=== PATIENT | female | born 1950 | race Asian ===

== ENCOUNTER → 2021-04-08 13:56 | Outpatient (CLI) | payer MEDICARE, OTHER, SELFPAY ==
--- NOTE | 2021-04-08 14:00 | DI.CT.S_ITS ---
PROCEDURE: CT SINUS SCREEN WO CON INDICATIONS: chronic pansinusitis TECHNIQUE: Noncontrast 3.0 mm axial images acquired from the frontal sinuses to the mid-sella, with coronal and sagittal reformats. For radiation dose reduction, the following was used: automated exposure control, adjustment of mA and/or kV according to patient size. COMPARISON: None. FINDINGS: Image quality: Excellent. Maxillary Sinuses: No bony remodeling or destruction. Sinuses are clear. Ethmoid Air Cells: No bony remodeling or destruction. Sinuses are clear. Sphenoid Sinuses: No bony remodeling or destruction. Sinuses are clear. Frontal Sinuses: No bony remodeling or destruction. Sinuses are clear. Ostiomeatal Complexes: Ostiomeatal complexes are patent, yet there constitutionally narrowed, with bilateral Russ cells. Miscellaneous: Visualized intra-orbital contents are normal. There is a left-sided natalya bullosa. There is mild rightward nasal septal deviation. IMPRESSION: No significant active paranasal sinus disease can be seen. Constitutionally narrowed ostiomeatal complexes. Mild rightward nasal septal deviation, with a left-sided natalya bullosa. Dictated by: Chauncey Owens M.D. on 04/08/2021 at 13:25 Approved by: Chauncey Owens M.D. on 04/08/2021 at 13:26
== END ==
PROVIDERS: Referring Provider Otolaryngology; Visit Provider Otolaryngology
DX: J32.4 Chronic pansinusitis (principal); J34.2 Deviated nasal septum
CPT/HCPCS: 70486

== ENCOUNTER 2023-07-07 21:24 | Inpatient (IN) | payer MEDICARE, OTHER, SELFPAY ==
[2023-07-07] VITALS (9 sets, daily range): BP systolic 193–238; BP diastolic 90–114; PULSE 89–118; RESP 15–24; TEMP 36.9; O2SAT 96–99; BMI 25.8
--- NOTE | 2023-07-07 21:51 | DI.RAD.S_ITS ---
PROCEDURE: XR CHEST 1V INDICATIONS: chest pain TECHNIQUE: One view of the chest was acquired. COMPARISON: None. FINDINGS: Surgical changes and devices: None. Lungs and pleura: Lungs are clear. No pleural effusions or pneumothorax. Mediastinum: Mediastinal contours appear normal. Heart size is normal. Bones and chest wall: No suspicious bony lesions. Overlying soft tissues appear unremarkable. IMPRESSION: No acute cardiopulmonary abnormality. Dictated by: Donte Mireles M.D. on 07/07/2023 at 23:07 Approved by: Donte Mireles M.D. on 07/07/2023 at 23:07
[2023-07-07 22:37] LABS: Add Manual Diff / Slide Review NO; Basophils Absolute Auto 100 /uL (0-100); Basophils Percent Auto 1.1 % (0-2); Eosinophils Absolute Auto 100 /uL (0-450); Eosinophils Percent Auto 1.5 % (2-4); Hemoglobin 13.4 g/dL (12.0-16.0); Lymphocytes Absolute Auto 1300 /uL (1100-4500); Lymphocytes Percent Auto 15.5 % (25-40); Mean Corpuscular HGB Conc 33.5 % (30-36); Mean Corpuscular Hemoglobin 27.8 PG (26-34); Mean Corpuscular Volume 83.1 fL (80-100); Monocytes Absolute Auto 500 /uL (0-900); Monocytes Percent Auto 5.9 % (3-14); Neutrophils Absolute Auto 6200 /uL (1500-7000); Platelet Count 268 X10^3/uL (150-400); Red Blood Cell Count 4.82 X10^6/uL (4.0-5.2); Red Cell Distribution Width 13.4 % (11.6-14.8); White Blood Cell Count 8.1 X10^3/uL (4.5-11.0)
[2023-07-07 22:38] LABS: INR 0.9 (0.9-1.3); Prothrombin Time 9.9 SECONDS (10.1-12.7)
[2023-07-07 22:41] LABS: PTT Partial Thromboplastin Tim 32 SECONDS (26-36)
[2023-07-07 22:43] LABS: Alanine Aminotransferase 19 IU/L (<35); Albumin 4.6 g/dL (3.5-5.0); Albumin Globulin Ratio 1.1 (1.0-2.8); Alkaline Phosphatase 68 U/L (38-126); Aspartate Aminotransferase 34 IU/L (14-36); BUN Creatinine Ratio 15.9 (6-22); Bilirubin Total 0.4 mg/dL (0.2-1.3); Blood Urea Nitrogen 20 mg/dL (7-17); Calcium 10.3 mg/dL (8.4-10.2); Carbon Dioxide 25 mmol/L (22-32); Chloride 101 mmol/L (98-107); Creatine Kinase 210 U/L (30-135); Estimated Glomerular Filt Rate 45 mL/min (>60); Globulin 4.1 g/dL (1.7-4.1); Glucose 232 mg/dL (80-110); HEMOLYSIS 19 (0-50); Lipase 104 U/L (23-300); Potassium 3.9 mmol/L (3.4-5.1); Sodium 137 mmol/L (137-145); Total Protein 8.7 g/dL (6.3-8.2)
[2023-07-07 22:54] LABS: Troponin I < 0.012 ng/mL (0.01-0.034)
--- NOTE | 2023-07-07 22:55 | ED_ITS ---
HPI - General Adult <Portia Kendrick DO - Last Filed: 07/08/23 21:41> General Chief complaint: Hypertension Stated complaint: high blood pressure Time Seen by Provider: 07/07/23 22:54 Source: patient and EMS Mode of arrival: EMS Limitations: no limitations History of Present Illness HPI narrative: 72-year-old female with history of hypertension, dyslipidemia, diabetes type 2, gout on aspirin 81 mg who presents with complaint of elevated blood pressure. Patient states this evening she is not been having any symptoms currently but on July 04 she had a tingling and pulling feeling in her jaw radiating that felt weird. Blood pressure was quite elevated she went to [facility] was seen and was told she did management for her blood pressure. Patient states she was given a new prescription for metoprolol 25 mg b.i.d.. She states she took it this morning but had not taken it this evening. She is not having any headache, no dizziness, no lightheadedness or passing out, no chest pain, no chest pressure, no jaw symptoms, no tightness in the chest. No arm heaviness. She denies abdominal back or flank pain. No swelling of extremities. No dysuria urgency or frequency. No black or bloody stools or diarrhea. No swelling in extremities. Denies any nausea or vomiting. Patient states she is been burping a lot this evening but had Macanese food after being seen at her primary care. Patient states she was told by her primary care to take her lisinopril dose because her blood pressure was elevated, she is not taken her metoprolol dose this evening. Patient's primary care is Dr. Castro. Related Data Home Medications Medication Instructions Recorded Confirmed allopurinol 100 mg tablet 100 mg PO DAILY 07/07/23 07/07/23 aspirin 81 mg tablet,delayed 81 mg PO DAILY 07/07/23 07/07/23 release lisinopril 40 mg tablet 40 mg PO BID 07/07/23 07/07/23 metformin 500 mg tablet,extended 500 mg PO BID 07/07/23 07/08/23 release 24 hr metoprolol tartrate 25 mg tablet 25 mg PO BID 07/07/23 07/07/23 simvastatin 40 mg tablet 40 mg PO ONCE PM 07/07/23 07/07/23 Allergies Allergy/AdvReac Type Severity Reaction Status Date / Time amlodipine Allergy Verified 07/07/23 21:43 hazelnut Allergy Verified 07/07/23 21:43 losartan Allergy Verified 07/07/23 21:43 spironolactone Allergy Verified 07/07/23 21:43 Review of Systems <Portia Kendrick DO - Last Filed: 07/08/23 21:41> Review of Systems ROS Unobtainable: All systems reviewed & are unremarkable except as noted in HPI and below Patient History <Portia Kendrick DO - Last Filed: 07/08/23 21:41> Medical History (Updated 07/08/23 @ 20:16 by Whitney Mendiola MD) Diabetes mellitus Hyperlipidemia Hypertension Gout Hypertension Surgical History (Updated 07/08/23 @ 20:17 by Whitney Mendiola MD) History of cataract surgery H/O hysterectomy with unilateral oophorectomy Social History household members: spouse Smoking Status: Never smoker alcohol intake: never Smoking Status: Never smoker Substance Use Type: does not use Exam <Portia Kendrick DO - Last Filed: 07/08/23 21:41> Narrative Exam Narrative: GENERAL: Alert and oriented x three, female in no acute distress. HEENT: Head normocephalic, atraumatic, EOMI, pupils reactive, face symmetric, moist mucous membranes NECK: Supple, full range of motion CARDIOVASCULAR: Regular rate and rhythm without murmurs, rubs or gallops. No JVD. No swelling bilateral lower extremities. RESPIRATORY: Breath sounds equal bilaterally, no wheezes rales or rhonchi. ABDOMEN: Soft, nontender. Normoactive bowel sounds all 4 quadrants. No guarding or rebound, rigidity, no mass, no pulsatile mass or bruit : No CVA tenderness EXTREMITIES: Normal range of motion, no clubbing or edema. Neurovascularly intact NEUROLOGICAL: Cranial nerves II through XII grossly intact. Moving all extremities SKIN: Warm, dry, no petechiae, no rashes or lesions. Initial Vital Signs Initial Vital Signs: Vital Signs Temperature 98.4 F 07/07/23 21:43 Pulse Rate 118 H 07/07/23 21:43 Respiratory Rate 17 07/07/23 21:43 Blood Pressure 224/96 H 07/07/23 21:43 Pulse Oximetry 99 07/07/23 21:43 Oxygen Delivery Method Room Air 07/07/23 21:43 <DO Luca López Last Filed: 07/08/23 13:01> Initial Vital Signs Initial Vital Signs: Vital Signs Temperature 98.4 F 07/07/23 21:43 Pulse Rate 118 H 07/07/23 21:43 Respiratory Rate 17 07/07/23 21:43 Blood Pressure 224/96 H 07/07/23 21:43 Pulse Oximetry 99 07/07/23 21:43 Oxygen Delivery Method Room Air 07/07/23 21:43 Scores <Portia Kendrick DO - Last Filed: 07/08/23 21:41> NIH Stroke Scale Level of Conciousness: Alert, keenly responsive Ask month/age: Answers both questions correctly. Open/close eyes, close hand: Performs both tasks correctly Best gaze horizontal: Normal Visual wyatt: No visual loss Facial palsy: Normal symetrical movement Left arm drift: No drift for full 10 sec Right arm drift: No drift for full 10 sec Left leg drift: No drift for full 5 sec Right leg drift: No drift for full 5 sec Limb ataxia: Absent Sensory on face/arms/legs: Normal, no sensory loss Best language: No aphasia, normal Dysarthria: Normal Extinction or inattention: No abnormality Total NIH Stroke scale score: 0 <DO Luca López Last Filed: 07/08/23 13:01> NIH Stroke Scale Total NIH Stroke scale score: 0 Course <Portia Kendrick DO - Last Filed: 07/08/23 21:41> Orders Ordered: Allopurinol (Allopurinol 100 Mg Tablet) 100 mg PO DAILY [facility] Aspirin (Aspirin Ec 81 Mg Tablet) 81 mg PO DAILY [facility] Atorvastatin Calcium (Atorvastatin 20 Mg Tablet) 80 mg PO BEDTIME [facility] Last Admin: 07/08/23 21:08 Dose: 80 mg Documented By: ROSARIO Metformin HCl (Metformin Xr 500 Mg Tablet) 500 mg PO 0800,1700 [facility] Last Admin: 07/08/23 18:19 Dose: 500 mg Documented By: BRUCE Naloxone HCl (Naloxone 0.4 Mg/Ml Vial) 0.2 mg IV Q2MIN PRN PRN Reason: Opiate Reversal Discontinued Medications Aspirin (Aspirin 81 Mg Chew Tab) 324 mg PO NOW ONE Stop: 07/07/23 21:52 Last Admin: 07/08/23 03:34 Dose: Not Given Documented By: SB Aspirin (Aspirin 81 Mg Chew Tab) 324 mg PO NOW ONE Stop: 07/08/23 03:17 Last Admin: 07/08/23 03:42 Dose: 324 mg Documented By: SB Al Hydrox/Mg Hydrox/Simethicone 20 ml/ Lidocaine HCl 15 ml 0 ml PO NOW ONE Stop: 07/07/23 23:13 Last Admin: 07/07/23 23:49 Dose: 35 ml Documented By: RL Hydralazine HCl (Hydralazine 20 Mg/Ml Vial) 10 mg IV NOW ONE Stop: 07/08/23 00:56 Last Admin: 07/08/23 01:02 Dose: 10 mg Documented By: RL Sodium Chloride (Normal Saline 0.9%) 1,000 mls @ 1,000 mls/hr IV BOLUS ONE Stop: 07/08/23 03:45 Last Infusion: 07/08/23 05:56 Dose: Infused Documented By: Admin: 07/08/23 03:43 Dose: 1,000 mls/hr Documented By: SB Lorazepam (Lorazepam 2 Mg/Ml Inj) 0.25 mg IV NOW ONE Stop: 07/08/23 08:01 Last Admin: 07/08/23 08:06 Dose: 0.25 mg Documented By: SPF Metformin HCl (Metformin Xr 500 Mg Tablet) 1,000 mg PO BID DAQUAN Last Admin: 07/08/23 14:31 Dose: 1,000 mg Documented By: MM Vital Signs Vital signs: Vital Signs - 8 hr 07/08/23 05:30 07/08/23 05:30 07/08/23 05:45 Pulse Rate 76 75 Respiratory Rate 23 17 Blood Pressure 219/95 H Pulse Oximetry 97 96 Oxygen Delivery Method 07/08/23 05:45 07/08/23 06:00 07/08/23 06:00 Pulse Rate 74 Respiratory Rate 18 Blood Pressure 213/96 H 197/84 H Pulse Oximetry 96 Oxygen Delivery Method Room Air 07/08/23 06:15 07/08/23 06:15 07/08/23 06:30 Pulse Rate 72 75 Respiratory Rate 22 18 Blood Pressure 196/88 H Pulse Oximetry 95 97 Oxygen Delivery Method 07/08/23 06:30 07/08/23 06:45 07/08/23 06:45 Pulse Rate 76 Respiratory Rate 18 Blood Pressure 199/91 H 210/96 H Pulse Oximetry 96 Oxygen Delivery Method 07/08/23 07:00 07/08/23 07:00 07/08/23 07:15 Pulse Rate 75 75 Respiratory Rate 19 18 Blood Pressure 208/95 H Pulse Oximetry 97 97 Oxygen Delivery Method Room Air 07/08/23 07:15 07/08/23 07:30 07/08/23 07:30 Pulse Rate 85 Respiratory Rate 25 H Blood Pressure 199/93 H 193/90 H Pulse Oximetry 98 Oxygen Delivery Method 07/08/23 07:45 07/08/23 07:45 07/08/23 08:00 Pulse Rate 79 82 Respiratory Rate 20 21 Blood Pressure 179/84 H Pulse Oximetry 98 99 Oxygen Delivery Method Room Air 07/08/23 08:01 07/08/23 08:01 07/08/23 08:39 Pulse Rate 82 89 Respiratory Rate 24 Blood Pressure 208/91 H Pulse Oximetry 97 94 Oxygen Delivery Method Room Air 07/08/23 08:41 07/08/23 08:41 07/08/23 08:45 Pulse Rate 86 82 Respiratory Rate 22 21 Blood Pressure 220/93 H Pulse Oximetry 97 97 Oxygen Delivery Method Room Air 07/08/23 08:45 07/08/23 09:00 07/08/23 09:00 Pulse Rate 85 Respiratory Rate 28 H Blood Pressure 185/84 H 191/87 H Pulse Oximetry 96 Oxygen Delivery Method Room Air 07/08/23 09:15 07/08/23 09:15 07/08/23 09:46 Pulse Rate 83 84 Respiratory Rate 21 Blood Pressure 171/77 H Pulse Oximetry 97 97 Oxygen Delivery Method Room Air 07/08/23 10:00 07/08/23 10:30 07/08/23 10:32 Pulse Rate 84 86 85 Respiratory Rate 14 24 Blood Pressure Pulse Oximetry 97 96 99 Oxygen Delivery Method Room Air Room Air 07/08/23 10:32 07/08/23 10:45 07/08/23 10:45 Pulse Rate 84 Respiratory Rate Blood Pressure 187/81 H 169/79 H Pulse Oximetry 98 Oxygen Delivery Method Room Air 07/08/23 11:00 07/08/23 11:00 Pulse Rate 80 Respiratory Rate 26 H Blood Pressure 166/81 H Pulse Oximetry 98 Oxygen Delivery Method Room Air <Valorie Kilpatrick, DO - Last Filed: 07/08/23 13:01> Orders Ordered: Allopurinol (Allopurinol 100 Mg Tablet) 100 mg PO DAILY [facility] Aspirin (Aspirin Ec 81 Mg Tablet) 81 mg PO DAILY [facility] Atorvastatin Calcium (Atorvastatin 20 Mg Tablet) 80 mg PO BEDTIME [facility] Last Admin: 07/08/23 21:08 Dose: 80 mg Documented By: ROSARIO Metformin HCl (Metformin Xr 500 Mg Tablet) 500 mg PO 0800,1700 [facility] Last Admin: 07/08/23 18:19 Dose: 500 mg Documented By: MM Naloxone HCl (Naloxone 0.4 Mg/Ml Vial) 0.2 mg IV Q2MIN PRN PRN Reason: Opiate Reversal Discontinued Medications Aspirin (Aspirin 81 Mg Chew Tab) 324 mg PO NOW ONE Stop: 07/07/23 21:52 Last Admin: 07/08/23 03:34 Dose: Not Given Documented By: SB Aspirin (Aspirin 81 Mg Chew Tab) 324 mg PO NOW ONE Stop: 07/08/23 03:17 Last Admin: 07/08/23 03:42 Dose: 324 mg Documented By: SB Al Hydrox/Mg Hydrox/Simethicone 20 ml/ Lidocaine HCl 15 ml 0 ml PO NOW ONE Stop: 07/07/23 23:13 Last Admin: 07/07/23 23:49 Dose: 35 ml Documented By: RL Hydralazine HCl (Hydralazine 20 Mg/Ml Vial) 10 mg IV NOW ONE Stop: 07/08/23 00:56 Last Admin: 07/08/23 01:02 Dose: 10 mg Documented By: RL Sodium Chloride (Normal Saline 0.9%) 1,000 mls @ 1,000 mls/hr IV BOLUS ONE Stop: 07/08/23 03:45 Last Infusion: 07/08/23 05:56 Dose: Infused Documented By: Admin: 07/08/23 03:43 Dose: 1,000 mls/hr Documented By: SB Lorazepam (Lorazepam 2 Mg/Ml Inj) 0.25 mg IV NOW ONE Stop: 07/08/23 08:01 Last Admin: 07/08/23 08:06 Dose: 0.25 mg Documented By: SPF Metformin HCl (Metformin Xr 500 Mg Tablet) 1,000 mg PO BID [facility] Last Admin: 07/08/23 14:31 Dose: 1,000 mg Documented By: MM Vital Signs Vital signs: Vital Signs - 8 hr 07/08/23 05:30 07/08/23 05:30 07/08/23 05:45 Pulse Rate 76 75 Respiratory Rate 23 17 Blood Pressure 219/95 H Pulse Oximetry 97 96 Oxygen Delivery Method 07/08/23 05:45 07/08/23 06:00 07/08/23 06:00 Pulse Rate 74 Respiratory Rate 18 Blood Pressure 213/96 H 197/84 H Pulse Oximetry 96 Oxygen Delivery Method Room Air 07/08/23 06:15 07/08/23 06:15 07/08/23 06:30 Pulse Rate 72 75 Respiratory Rate 22 18 Blood Pressure 196/88 H Pulse Oximetry 95 97 Oxygen Delivery Method 07/08/23 06:30 07/08/23 06:45 07/08/23 06:45 Pulse Rate 76 Respiratory Rate 18 Blood Pressure 199/91 H 210/96 H Pulse Oximetry 96 Oxygen Delivery Method 07/08/23 07:00 07/08/23 07:00 07/08/23 07:15 Pulse Rate 75 75 Respiratory Rate 19 18 Blood Pressure 208/95 H Pulse Oximetry 97 97 Oxygen Delivery Method Room Air 07/08/23 07:15 07/08/23 07:30 07/08/23 07:30 Pulse Rate 85 Respiratory Rate 25 H Blood Pressure 199/93 H 193/90 H Pulse Oximetry 98 Oxygen Delivery Method 07/08/23 07:45 07/08/23 07:45 07/08/23 08:00 Pulse Rate 79 82 Respiratory Rate 20 21 Blood Pressure 179/84 H Pulse Oximetry 98 99 Oxygen Delivery Method Room Air 07/08/23 08:01 07/08/23 08:01 07/08/23 08:39 Pulse Rate 82 89 Respiratory Rate 24 Blood Pressure 208/91 H Pulse Oximetry 97 94 Oxygen Delivery Method Room Air 07/08/23 08:41 07/08/23 08:41 07/08/23 08:45 Pulse Rate 86 82 Respiratory Rate 22 21 Blood Pressure 220/93 H Pulse Oximetry 97 97 Oxygen Delivery Method Room Air 07/08/23 08:45 07/08/23 09:00 07/08/23 09:00 Pulse Rate 85 Respiratory Rate 28 H Blood Pressure 185/84 H 191/87 H Pulse Oximetry 96 Oxygen Delivery Method Room Air 07/08/23 09:15 07/08/23 09:15 07/08/23 09:46 Pulse Rate 83 84 Respiratory Rate 21 Blood Pressure 171/77 H Pulse Oximetry 97 97 Oxygen Delivery Method Room Air 07/08/23 10:00 07/08/23 10:30 07/08/23 10:32 Pulse Rate 84 86 85 Respiratory Rate 14 24 Blood Pressure Pulse Oximetry 97 96 99 Oxygen Delivery Method Room Air Room Air 07/08/23 10:32 07/08/23 10:45 07/08/23 10:45 Pulse Rate 84 Respiratory Rate Blood Pressure 187/81 H 169/79 H Pulse Oximetry 98 Oxygen Delivery Method Room Air 07/08/23 11:00 07/08/23 11:00 Pulse Rate 80 Respiratory Rate 26 H Blood Pressure 166/81 H Pulse Oximetry 98 Oxygen Delivery Method Room Air Medical Decision Making <Portia Kendrick, DO - Last Filed: 07/08/23 21:41> Lab Data 07/07/23 22:15 07/07/23 22:15 Labs: Lab Results 07/07/23 07/08/23 Range/Units 22:15 00:09 WBC 8.1 (4.5-11.0) X10^3/uL RBC 4.82 (4.0-5.2) X10^6/uL Hgb 13.4 (12.0-16.0) g/dL Hct 40.0 (36-46) % MCV 83.1 (80-100) fL MCH 27.8 (26-34) PG MCHC 33.5 (30-36) % RDW 13.4 (11.6-14.8) % Plt Count 268 (150-400) X10^3/uL Neut % (Auto) 76.0 H (50-75) % Lymph % (Auto) 15.5 L (25-40) % Schleicher % (Auto) 5.9 (3-14) % Eos % (Auto) 1.5 L (2-4) % Baso % (Auto) 1.1 (0-2) % Neut # (Auto) 6200 (0471-4423) /uL Lymph # (Auto) 1300 (6320-2450) /uL Schleicher # (Auto) 500 (0-900) /uL Eos # (Auto) 100 (0-450) /uL Baso # (Auto) 100 (0-100) /uL PT 9.9 L (10.1-12.7) SECONDS INR 0.9 (0.9-1.3) APTT 32 (26-36) SECONDS Sodium 137 (137-145) mmol/L Potassium 3.9 (3.4-5.1) mmol/L Chloride 101 (98-107) mmol/L Carbon Dioxide 25 (22-32) mmol/L BUN 20 H (7-17) mg/dL Creatinine 1.26 H (0.52-1.04) mg/dL Estimated GFR 45 L (>60) mL/min BUN/Creatinine Ratio 15.9 (6-22) Glucose 232 H (80-110) mg/dL Calcium 10.3 H (8.4-10.2) mg/dL Magnesium 2.0 (1.6-2.3) mg/dL Total Bilirubin 0.4 (0.2-1.3) mg/dL AST 34 (14-36) IU/L ALT 19 (<35) IU/L Alkaline Phosphatase 68 (38-126) U/L Total Creatine Kinase 210 H (30-135) U/L Troponin I < 0.012 0.029 (0.01-0.034) ng/mL Total Protein 8.7 H (6.3-8.2) g/dL Albumin 4.6 (3.5-5.0) g/dL Globulin 4.1 (1.7-4.1) g/dL Albumin/Globulin Ratio 1.1 (1.0-2.8) Lipase 104 (23-300) U/L Point of Care Testing Glucose POC 267 Point of care testing: Point of Care Testing Glucose POC 267 Imaging Data Chest x-ray: Radiologist's Impression: [address] [address] XRay Report Signed Patient: Germania Erickson MR#: [id number] : 1950 Acct:[id number] Age/Sex: 72 / F Date of Service: 07/07/23 Loc: ED Accession Number: [id number] Procedure: XR chest 1V Ordering Provider: Portia Kendrick D.O. PROCEDURE: XR CHEST 1V INDICATIONS: chest pain TECHNIQUE: One view of the chest was acquired. COMPARISON: None. FINDINGS: Surgical changes and devices: None. Lungs and pleura: Lungs are clear. No pleural effusions or pneumothorax. Mediastinum: Mediastinal contours appear normal. Heart size is normal. Bones and chest wall: No suspicious bony lesions. Overlying soft tissues appear unremarkable. IMPRESSION: No acute cardiopulmonary abnormality. Dictated by: Donte Mireles M.D. on 07/07/2023 at 23:07 Approved by: Donte Mireles M.D. on 07/07/2023 at 23:07 ECG Data Attestation: I personally reviewed and interpreted this ECG as follows: Prior ECG tracings: not available for review Interpretation: Sinus rhythm rate of 99 CO 136 QRS is 78 QTC [address] No acute ST elevation depression appreciated patient does not have any priors for comparison. Patient has prior from 07/04/2023 from outside records which showed no acute ST changes or depression sinus tachycardia with a rate of 115 CO 147 QRS 84 QTC 482 that appears similar to today's [facility] Narrative Medical decision making narrative: 72-year-old female with complaint of elevated blood pressure patient states she is been burping a lot after Macanese food today but denies other symptoms. Was seen in the at outside facility was able to able to obtain records. Patient's creatinine today shows an elevation but appears consistent with prior on the with a creatinine of 1.1 and a GFR of 49 at that time, patient had has sensitive troponins she was given dose of 50 mg metoprolol orally and 10 mg IV patient has improved. Patient's workup today shows normal white count, hemoglobin and platelets with leftward shift, coags are negative, creatinine is 1.26 was 1.1 on the the GFR 45 today and 49 at that time electrolytes are appropriate 137 and 3.9 BUN 20, glucose is 232 patient does have reported history of diabetes total CK is 210, troponins negative. EKG appears similar to prior EKG from outside facility with no dynamic changes appreciated. Chest x-ray shows no acute change. Patient has not taken her new metoprolol dose discussed she should take that evening, blood pressure was still quite elevated but trending down before she took it. Troponin was repeated along with EKG at the 2 hour aliyah shows troponin still in negative. range. Patient noted that she had a little bit of speech change earlier just before discharge. Discussed with patient NIH is currently 0 she states speech has improved already. We will obtain head CT and CT angio. Order was placed around 0209, but then patient had significant change with left droop, speech difficulty and left upper extremity weakness. Patient taken directly to CT. Glucose on recheck 200 range, BP recheck patient has had significant decrease in blood pressure. Patient on recheck after return from CT, symptoms have resolved, NIH is 0 on recheck. Patients BP has increased back to 210 range and is now asymptomatic and states she feels improved. Spoke with Dr. Toth neurology [facility], she reviewed CT head without contrast and CTA. Recommends MRI for follow-up, notes there is a hyperdense area they do not believe it is blood but can not totally exclude. On CT angio other stenosis of the origin of the right ICA mid M1 which could have developed patient's symptoms with the hypo perfusion episode. Recommends waiting until MRI is back and if not bleed can continue with aspirin monotherapy and blood pressure management with slow decrease of blood pressure no more than 10% daily. Patient signed out to Dr. Kilpatrick while awaiting MR, if positive for bleed then require possible transfer. If negative for bleed but has stroke or negative for stroke would need admission for hypertensive emergency/urgency and continuing aspirin daily. Dr. Kilpatrick: Signed out to me by Dr. Kendrick I have seen evaluated patient myself. Awake alert oriented wanting some breakfast. She is no facial droop component technician strength is equal moving both lower extremities. Blood pressure currently 179/84. Awaiting for MRI this morning. Questionable hyperdense area that can not be excluded for intracranial hemorrhage. Patient is not nauseous she is hungry. Neurovascularly intact at this time. MRI confirms acute/subacute stroke with likely calcification Dr. Mendiola updated, accepts patient. In ED to see and evaluate patient. <Valorie Kilpatrick, DO - Last Filed: 07/08/23 13:01> Lab Data Labs: Lab Results 07/07/23 07/08/23 Range/Units 22:15 00:09 WBC 8.1 (4.5-11.0) X10^3/uL RBC 4.82 (4.0-5.2) X10^6/uL Hgb 13.4 (12.0-16.0) g/dL Hct 40.0 (36-46) % MCV 83.1 (80-100) fL MCH 27.8 (26-34) PG MCHC 33.5 (30-36) % RDW 13.4 (11.6-14.8) % Plt Count 268 (150-400) X10^3/uL Neut % (Auto) 76.0 H (50-75) % Lymph % (Auto) 15.5 L (25-40) % Schleicher % (Auto) 5.9 (3-14) % Eos % (Auto) 1.5 L (2-4) % Baso % (Auto) 1.1 (0-2) % Neut # (Auto) 6200 (5479-2332) /uL Lymph # (Auto) 1300 (7437-3785) /uL Schleicher # (Auto) 500 (0-900) /uL Eos # (Auto) 100 (0-450) /uL Baso # (Auto) 100 (0-100) /uL PT 9.9 L (10.1-12.7) SECONDS INR 0.9 (0.9-1.3) APTT 32 (26-36) SECONDS Sodium 137 (137-145) mmol/L Potassium 3.9 (3.4-5.1) mmol/L Chloride 101 (98-107) mmol/L Carbon Dioxide 25 (22-32) mmol/L BUN 20 H (7-17) mg/dL Creatinine 1.26 H (0.52-1.04) mg/dL Estimated GFR 45 L (>60) mL/min BUN/Creatinine Ratio 15.9 (6-22) Glucose 232 H (80-110) mg/dL Calcium 10.3 H (8.4-10.2) mg/dL Magnesium 2.0 (1.6-2.3) mg/dL Total Bilirubin 0.4 (0.2-1.3) mg/dL AST 34 (14-36) IU/L ALT 19 (<35) IU/L Alkaline Phosphatase 68 (38-126) U/L Total Creatine Kinase 210 H (30-135) U/L Troponin I < 0.012 0.029 (0.01-0.034) ng/mL Total Protein 8.7 H (6.3-8.2) g/dL Albumin 4.6 (3.5-5.0) g/dL Globulin 4.1 (1.7-4.1) g/dL Albumin/Globulin Ratio 1.1 (1.0-2.8) Lipase 104 (23-300) U/L Point of Care Testing Glucose POC 267 Point of care testing: Point of Care Testing Glucose POC 267 Imaging Data MR brain: Radiologist's Impression: PROCEDURE: MR HEAD/BRAIN WO CON INDICATIONS: right frontal hyperdensity, cva vs bleed vs tia TECHNIQUE: Non-contrast axial T1 spin echo, axial T2 fast spin echo, sagittal and axial FLAIR, coronal T2 fast spin echo, axial gradient echo, axial diffusion and ADC through the brain. COMPARISON: [facility], CT, CT STROKE, 07/08/2023, 2:34. [facility], CT, CT ANGIO HEAD AND NECK, 07/08/2023, 2:34. FINDINGS: Image quality: Excellent. CSF spaces: Ventricles appear symmetric in size and shape. Basal cisterns are patent. No extra-axial fluid collections. Brain: No intracranial bleeds or mass effects. There is cerebral volume loss for age. There are periventricular and deep white matter chronic small vessel ischemic changes. Brainstem appears normal. Diffusion-weighted images demonstrate multifocal areas hyperdensity with corresponding hypointense ADC signal in the right frontal parietal lobes. These also correlate to hyperintense T2/FLAIR signal foci. The punctate area of hyperdensity within the cortical region of the right frontal lobe is not well characterized on current exam. It is best seen is a punctate area hypo intensity on gradient sequence. Normal intravascular flow voids are present. Skull and face: Calvarial bone marrow is normal in signal. Orbits are normal. Sinuses: Sinuses and mastoids are clear. IMPRESSION: Multifocal areas of restricted diffusion most consistent with acute/subacute ischemia. Atrophy and chronic microvascular ischemic changes are present. Punctate area of ill-defined signal corresponding to hyperdensity within the right frontal lobe on recent CT exam. It remains difficult to characterize although remains suggestive of a small calcification. As clinical concerns warrant, [address] follow-up may be obtained to document stability and exclude small possibility of underlying evolving hemorrhage. Dictated by: Zaira Mcgovern M.D. on 07/08/2023 at 8:48 MDM Narrative Medical decision making narrative: 72-year-old female with complaint of elevated blood pressure patient states she is been burping a lot after Macanese food today but denies other symptoms. Was seen in the at outside facility was able to able to obtain records. Patient's creatinine today shows an elevation but appears consistent with prior on the with a creatinine of 1.1 and a GFR of 49 at that time, patient had has sensitive troponins she was given dose of 50 mg metoprolol orally and 10 mg IV patient has improved. Patient's workup today shows normal white count, hemoglobin and platelets with leftward shift, coags are negative, creatinine is 1.26 was 1.1 on the the GFR 45 today and 49 at that time electrolytes are appropriate 137 and 3.9 BUN 20, glucose is 232 patient does have reported history of diabetes total CK is 210, troponins negative. EKG appears similar to prior EKG from outside facility with no dynamic changes appreciated. Chest x-ray shows no acute change. Patient has not taken her new metoprolol dose discussed she should take that evening, blood pressure was still quite elevated but trending down before she took it. Troponin was repeated along with EKG at the 2 hour aliyah shows troponin still in negative. range. Patient noted that she had a little bit of speech change earlier just before discharge. Discussed with patient NIH is currently 0 she states speech has improved already. We will obtain head CT and CT angio. Order was placed around 0209, but then patient had significant change with left droop, speech difficulty and left upper extremity weakness. Patient taken directly to CT. Glucose on recheck 200 range, BP recheck patient has had significant decrease in blood pressure. Patient on recheck, symptoms have resolved, NIH is 0 on recheck. Recommends MRI for follow-up, notes there is a hyperdense area they do not believe it is blood but can not totally exclude. On CT angio other stenosis of the origin of the right ICA mid M1 which could have developed patient's symptoms with the hypo perfusion episode. Recommends waiting until MRI is back and if shot bleed can continue with aspirin monotherapy and blood pressure management with slow decrease of blood pressure no more than 10% daily. Patient signed out to Dr. Kilpatrick while awaiting MR, if positive for bleed when require possible transfer. If negative for bleed but has stroke or new stroke would need admission for hypertensive emergency/urgency and continuing aspirin daily. Dr. Kilpatrick: Signed out to me by Dr. Kendrick I have seen evaluated patient myself. Awake alert oriented wanting some breakfast. She is no facial droop component technician strength is equal moving both lower extremities. Blood pressure currently 179/84. Awaiting for MRI this morning. Questionable hyperdense area that can not be excluded for intracranial hemorrhage. Patient is not nauseous she is hungry. Neurovascularly intact at this time. MRI confirms acute/subacute stroke with likely calcification Dr. Mendiola updated, accepts patient. In ED to see and evaluate patient. Critical Care Time <Portia C Aroldo, DO - Last Filed: 07/08/23 21:41> Critical Care Time Critical Care Time: Yes Attestation: The high probability of a clinically significant, sudden or life threatening deterioration of the [neuro] system(s) required my full and direct attention, intervention and personal management. The aggregate critical care time was [] minutes. This time is in addition to time spent performing reported procedures but includes the following: [x] Data Review and interpretation [x] Patient assessment and monitoring of vital signs [x] Documentation [x] Medication orders and management <Valorie Kilpatrick, DO - Last Filed: 07/08/23 13:01> Critical Care Time Total Critical Care Time: 45 Attestation: The high probability of a clinically significant, sudden or life threatening deterioration of the [neuro] system(s) required my full and direct attention, intervention and personal management. The aggregate critical care time was 45 minutes. This time is in addition to time spent performing reported procedures but includes the following: [x] Data Review and interpretation [x] Patient assessment and monitoring of vital signs [x] Documentation [x] Medication orders and management Discharge Plan Departure Patient Disposition: Admitted As Inpatient Clinical Impression: Hypertension, Acute CVA (cerebrovascular accident) Admit Date/Time: 07/08/23 11:15 Admit Provider: Whitney Mendiola
[2023-07-07] MEDS: MAG HYDROX/ALUMINUM/SIMETH SUS 20 ML, LIDOCAINE VISCOUS 2% 15 ML PO (23:49)
[2023-07-08] VITALS (55 sets, daily range): BP systolic 111–246; BP diastolic 57–132; PULSE 63–98; RESP 14–29; TEMP 37–37.9; O2SAT 94–99; BMI 25.8
[2023-07-08 00:41] LABS: Troponin I 0.029 ng/mL (0.01-0.034)
[2023-07-08] MEDS: HYDRALAZINE 20 MG/ML VIAL 10 MG IV (01:02)
--- NOTE | 2023-07-08 02:09 | DI.CT.S_ITS ---
PROCEDURE: CT STROKE INDICATIONS: htn, pt. states thinks was talking funny; CODE STROKE. TECHNIQUE: Noncontrast 4.5 mm thick angled axial sections acquired from the foramen magnum to the vertex, with coronal reformats. For radiation dose reduction, the following was used: automated exposure control, adjustment of mA and/or kV according to patient size. COMPARISON: None. FINDINGS: Image quality: Excellent. CSF spaces: Basal cisterns are patent. No extra-axial fluid collections. Ventricles are normal in size and shape. Brain: No midline shift. No intracranial masses or hemorrhage. Grace-white matter interface is normal. Small hyperdense artifact noted the right frontal lobe on image 2/21 Skull and face: Calvarium and visualized facial bones are intact, without suspicious lesions. Sinuses: Visualized sinuses and mastoids are clear. IMPRESSION: Unremarkable CT brain This study fulfills neurological imaging criteria for inclusion or exclusion of acute stroke therapies based on available published neurological imaging guidelines. Note: This final report is concordant with the preliminary after-hours interpretation provided by [facility] Approved by: Leo Sheets M.D. on 07/08/2023 at 8:51
--- NOTE | 2023-07-08 02:09 | DI.CT.S_ITS ---
PROCEDURE: CT ANGIO HEAD AND NECK INDICATIONS: Hypertension; pt. states thinks was talking funny. TECHNIQUE: After the administration of intravenous contrast, 1 mm thick sections acquired from the aortic arch through the [place] of [place]. MIP reformats of the arterial vasculature were utilized. For radiation dose reduction, the following was used: automated exposure control, adjustment of mA and/or kV according to patient size. COMPARISON: None. FINDINGS: Cerebral CT Angiogram: Internal carotid arteries: Atherosclerotic plaque in the cavernous segments of both ICA without stenosis or aneurysm Anterior cerebral arteries: Unremarkable. No significant stenosis. No occlusion. No aneurysm. Middle cerebral arteries: In the right proximal M2 MCA just distal to the origin of the anterior temporal artery, there is a focal severe stenosis without occlusion. No aneurysm. Left MCA is unremarkable Posterior cerebral arteries: Unremarkable. No significant stenosis. No occlusion. No aneurysm. Basilar artery: Unremarkable. No significant stenosis. No occlusion. No aneurysm. Vertebral arteries: Unremarkable as visualized. Dural venous sinuses: Unremarkable given phase of enhancement. Other: Arterial phase brain parenchyma is unremarkable. Neck CT Angiogram: Internal carotid arteries: Atherosclerotic plaque in both proximal ICA results in approximately 50% stenosis on the left and image 20% stenosis on the right utilizing NASCET criteria. No occlusion. Common carotid arteries: Unremarkable. No significant stenosis. No dissection or occlusion. External carotid arteries: Unremarkable. No occlusion. Vertebral arteries: Unremarkable. No significant stenosis. No dissection or occlusion. Other: None. Aortic Arch and Mediastinum: Partially visualized aortic arch unremarkable without evidence of aneurysm. Origins of the great vessels unremarkable. IMPRESSION: 1. Severe right focal MCA stenosis without occlusion. No intracranial aneurysm or vascular malformation. 2. Calcified atherosclerotic plaque in both proximal ICA results in 50% stenosis in the left and 20% stenosis in the right utilizing NASCET criteria. Note: This final report is essentially concordant with the preliminary after-hours interpretation provided by [facility] Note: If present, proximal ICA stenosis was calculated using NASCET guidelines. Approved by: Leo Sheets M.D. on 07/08/2023 at 9:02
--- NOTE | 2023-07-08 03:20 | PC.NURSE ---
Patient was getting ready to discharge and went to the restroom; ambulated safely back from bathroom and then had an acute neuro change with slurred speech, Left side facial droop and Left sided neglect; Dr. Kendrick came to bedside stat; new PIV was immediately placed, glucose and blood pressure were checked and patient was rushed to CT for imaging.
[2023-07-08] MEDS: ASPIRIN 81 MG CHEW TAB 324 MG PO (03:42)
[2023-07-08] MEDS: SODIUM CHLORIDE 0.9% 1,000 ML 1000 ML IV (03:43)
--- NOTE | 2023-07-08 04:40 | DI.MRI.S_ITS ---
PROCEDURE: MR HEAD/BRAIN WO CON INDICATIONS: right frontal hyperdensity, cva vs bleed vs tia TECHNIQUE: Non-contrast axial T1 spin echo, axial T2 fast spin echo, sagittal and axial FLAIR, coronal T2 fast spin echo, axial gradient echo, axial diffusion and ADC through the brain. COMPARISON: [facility], CT, CT STROKE, 07/08/2023, 2:34. [facility], CT, CT ANGIO HEAD AND NECK, 07/08/2023, 2:34. FINDINGS: Image quality: Excellent. CSF spaces: Ventricles appear symmetric in size and shape. Basal cisterns are patent. No extra-axial fluid collections. Brain: No intracranial bleeds or mass effects. There is cerebral volume loss for age. There are periventricular and deep white matter chronic small vessel ischemic changes. Brainstem appears normal. Diffusion-weighted images demonstrate multifocal areas hyperdensity with corresponding hypointense ADC signal in the right frontal parietal lobes. These also correlate to hyperintense T2/FLAIR signal foci. The punctate area of hyperdensity within the cortical region of the right frontal lobe is not well characterized on current exam. It is best seen is a punctate area hypo intensity on gradient sequence. Normal intravascular flow voids are present. Skull and face: Calvarial bone marrow is normal in signal. Orbits are normal. Sinuses: Sinuses and mastoids are clear. IMPRESSION: Multifocal areas of restricted diffusion most consistent with acute/subacute ischemia. Atrophy and chronic microvascular ischemic changes are present. Punctate area of ill-defined signal corresponding to hyperdensity within the right frontal lobe on recent CT exam. It remains difficult to characterize although remains suggestive of a small calcification. As clinical concerns warrant, [address] follow-up may be obtained to document stability and exclude small possibility of underlying evolving hemorrhage. Dictated by: Zaira Mcgovern M.D. on 07/08/2023 at 8:48 Approved by: Zaira Mcgovern M.D. on 07/08/2023 at 8:54
[2023-07-08] MEDS: LORazepam 2 MG/ML INJ 0.25 MG IV (08:06)
--- NOTE | 2023-07-08 10:58 | PC.NURSE ---
Pt's daughter was on speaker on another family members phone in the room. Both patient and pt's daughter on the phone asked for an update as to patient's current status. Doctor Finesse was previously in the room and explained the status to patient and both family members present in the room. I updated the daughter and clarified with everyone in the room pt's status and pending admission vs. pending transfer which we are uncertain of at this time. Patient and family expressed understanding. No further concerns.
--- NOTE | 2023-07-08 11:33 | DI.ECHO.S_ITS ---
[facility]---------+ [facility] +---------+ : : [address] [place] [address] : : : : [id number] : : : : Phone: [phone]---------+ Echocardiogram Report + + :Name: GILBERT SUGGS Study Date: 07/09/2023 Height: 59 in : :[facility] ReadingLocation: Weight: 128 lb : : Gender: Female BSA: 1.5 m2 : :: 1950 Age: 72 yrs BP: 189/76 mmHg: :Reason For Study: Stroke : :Ordering Physician: NIMISHA, : :UBALDO Blackburn Performed By: Shannan Grant : :Referring: UBALDO BANSAL : + + Interpretation Summary There is moderate concentric left ventricular hypertrophy. The ejection fraction is estimated to be 70-75%. Grade I diastolic dysfunction. The right ventricle is normal in size and function.No significant valvular abnormalities. Pulmonary artery pressures cannot be estimated because of the lack of a measurable TR jet velocity but the IVC suggests a CVP of around 3 mmHg. Injection of contrast documented no interatrial shunt. Procedure: A two-dimensional transthoracic echocardiogram with color flow and Doppler was performed. The study quality was technically adequate. There is no prior echocardiogram noted for this patient. A saline contrast injection was performed to assess for cardiac shunting. The patient was in normal sinus rhythm during the exam. Left Ventricle: The left ventricle is normal in size. There is moderate concentric left ventricular hypertrophy. The ejection fraction is estimated to be 70-75%. Diastolic parameters suggest a relaxation abnormality of the left ventricle, consistent with probable normal filling pressures. Right Ventricle: The right ventricle is normal in size and function. Atria: The left atrial size is normal. Right atrial size is normal. Injection of contrast documented no interatrial shunt. Mitral Valve: The mitral valve is normal. There is mild mitral annular calcification. There is no mitral valve stenosis. There is trace mitral regurgitation. Aortic Valve: The aortic valve is not well visualized. There is no aortic valve stenosis. There is no aortic regurgitation. Tricuspid Valve: The tricuspid valve is normal. There is no tricuspid stenosis. There is trace tricuspid regurgitation. Pulmonary artery pressures cannot be estimated because of the lack of a measurable TR jet velocity but the IVC suggests a CVP of around 3 mmHg. Pulmonic Valve: The pulmonic valve is not well visualized. There is no pulmonic valvular stenosis. There is trace pulmonic regurgitation. Great Vessels: The aortic root is normal size. The ascending aorta is normal in size. The pulmonary artery is normal size. The IVC is of normal diameter and collapses greater than 50% with a sniff. This suggests a low right atrial pressure of 3 mm Hg. Pericardium/ Pleura There is no pericardial effusion. There is no pleural effusion. MMode/2D Measurements & Calculations LVIDd: 3.7 cm LVOT diam: 2.0 cm LVIDs: 2.5 cm Ao root diam: 2.1 cm FS: 32.6 % asc Aorta Diam: 2.7 cm IVSd: 1.5 cm LVPWd: 1.3 cm LV alicea. diameter/BSA (cm/m^2): 2.4 LV sys. diameter/BSA (cm/m^2): 1.6 LA A2 area: 12.2 cm2 RVD1 (basal): 2.7 cm LA A4 area: 8.8 cm2 LA length (vol): 4.5 cm LA vol: 20.5 ml LA vol index: 13.5 ml/m2 LVLs ap4: 5.0 cm LVLd ap2: 6.5 cm LVLs ap2: 5.1 cm TAPSE_phl: 2.2 cm Doppler Measurements & Calculations Ao V2 max: 142.3 cm/sec LVOT Max Daniel: 99.5 cm/sec Ao V2 mean: 97.6 cm/sec LV V1 max P.0 mmHg Ao max P.0 mmHg LV V1 VTI: 19.6 cm Ao mean P.5 mmHg CARLOS(I,D): 2.3 cm2 Ao V2 VTI: 26.7 cm CARLOS(V,D): 2.2 cm2 sev ratio: 0.73 CARLOS indexed to BSA (cm^2/m^2): 1.5 MV E max daniel: 59.1 cm/sec PA V2 max: 118.0 cm/sec MV A max daniel: 120.0 cm/sec PA V2 mean: 78.7 cm/sec MV E/A: 0.49 PA mean P.0 mmHg Med Peak E' Daniel: 4.3 cm/sec PA pr(Accel): 43.5 mmHg E/E' med: 13.9 Lat Peak E' Daniel: 5.1 cm/sec E/E' lat: 11.6 E/e' average: 12.7 MV dec time: 0.23 sec SV(LVOT): 61.6 ml AV VR_phl: 0.70 CARLOS(VTI)/BSA_phl: 1.5 Reading Physician:04:19 PM
--- NOTE | 2023-07-08 11:34 | P.HP_ITS ---
History of Present Illness History of Present Illness Date Patient Seen: 07/08/23 Chief complaint: high blood pressure Narrative: This is a 72-year-old female with hypertension, gout, diabetes mellitus and hyperlipidemia who presents with stroke symptoms. She came to the ED yesterday with blood pressures in the 200 systolic and above 100 diastolic range. She was having vague facial tingling/symptoms. She was treated with hydralazine with the blood pressure dropping substantially and then developing left upper extremity and left facial drooping with speech irregularity. Her initial CT scan did not show a stroke. 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 She had been evaluated 2 days before this at [facility] for similar symptoms and treated with blood pressure medicine without symptoms. Her MRI scan today shows a right frontal lobe area of ischemia. Her neurologic symptoms have completely resolved. She is admitted for observation, further telemetry and echocardiogram. Neurology has recommended aspirin treatment as she has apparently not been taking the prescribed aspirin before this and to lower her blood pressure by 10% per day. Her lisinopril and metoprolol have been on hold as her systolic is in the 170s currently. Her current NIH score is 0. PFSH Medical History (Updated 07/08/23 @ 20:16 by Whitney Mendiola MD) Diabetes mellitus Hyperlipidemia Hypertension Gout Hypertension Surgical History (Updated 07/08/23 @ 20:17 by Whitney Mendiola MD) History of cataract surgery H/O hysterectomy with unilateral oophorectomy Social History household members: spouse Smoking Status: Never smoker alcohol intake: never Meds Home Medications and Allergies Home Medications Medication Instructions Recorded Confirmed Type allopurinol 100 mg tablet 100 mg PO DAILY 07/07/23 07/07/23 History aspirin 81 mg tablet,delayed 81 mg PO DAILY 07/07/23 07/07/23 History release lisinopril 40 mg tablet 40 mg PO BID 07/07/23 07/07/23 History metformin 500 mg tablet,extended 500 mg PO BID 07/07/23 07/08/23 History release 24 hr metoprolol tartrate 25 mg tablet 25 mg PO BID 07/07/23 07/07/23 History simvastatin 40 mg tablet 40 mg PO ONCE PM 10/20/23 10/20/23 History Allergies Allergy/AdvReac Type Severity Reaction Status Date / Time amlodipine Allergy Verified 07/07/23 21:43 hazelnut Allergy Verified 07/07/23 21:43 losartan Allergy Verified 07/07/23 21:43 spironolactone Allergy Verified 07/07/23 21:43 Review of Systems Review of Systems Narrative: Positive for facial tingling, difficulty talking, left upper extremity weakness. Negative for fevers, chills, sweats, dysuria, abdominal pain, bleeding, rashes, chest pain, sore throat, seizures, headaches, new allergies Exam Vital Signs (past 8 hours): - 07/08/23 03:45 07/08/23 03:45 07/08/23 04:00 Pulse Rate 74 72 Respiratory Rate 20 18 Blood Pressure 183/74 H Pulse Oximetry 98 98 Oxygen Delivery Method 07/08/23 04:00 07/08/23 04:15 07/08/23 04:15 Pulse Rate 72 Respiratory Rate 20 Blood Pressure 170/79 H 176/84 H Pulse Oximetry 98 Oxygen Delivery Method 07/08/23 04:30 07/08/23 04:30 07/08/23 05:00 Pulse Rate 72 Respiratory Rate 21 Blood Pressure 201/88 H 193/81 H Pulse Oximetry 98 Oxygen Delivery Method 07/08/23 05:00 07/08/23 05:30 07/08/23 05:30 Pulse Rate 71 76 Respiratory Rate 20 23 Blood Pressure 219/95 H Pulse Oximetry 98 97 Oxygen Delivery Method 07/08/23 05:45 07/08/23 05:45 07/08/23 06:00 Pulse Rate 75 Respiratory Rate 17 Blood Pressure 213/96 H 197/84 H Pulse Oximetry 96 Oxygen Delivery Method 07/08/23 06:00 07/08/23 06:15 07/08/23 06:15 Pulse Rate 74 72 Respiratory Rate 18 22 Blood Pressure 196/88 H Pulse Oximetry 96 95 Oxygen Delivery Method Room Air 07/08/23 06:30 07/08/23 06:30 07/08/23 06:45 Pulse Rate 75 76 Respiratory Rate 18 18 Blood Pressure 199/91 H Pulse Oximetry 97 96 Oxygen Delivery Method 07/08/23 06:45 07/08/23 07:00 07/08/23 07:00 Pulse Rate 75 Respiratory Rate 19 Blood Pressure 210/96 H 208/95 H Pulse Oximetry 97 Oxygen Delivery Method 07/08/23 07:15 07/08/23 07:15 07/08/23 07:30 Pulse Rate 75 Respiratory Rate 18 Blood Pressure 199/93 H 193/90 H Pulse Oximetry 97 Oxygen Delivery Method Room Air 07/08/23 07:30 07/08/23 07:45 07/08/23 07:45 Pulse Rate 85 79 Respiratory Rate 25 H 20 Blood Pressure 179/84 H Pulse Oximetry 98 98 Oxygen Delivery Method 07/08/23 08:00 07/08/23 08:01 07/08/23 08:01 Pulse Rate 82 82 Respiratory Rate 21 24 Blood Pressure 208/91 H Pulse Oximetry 99 97 Oxygen Delivery Method Room Air Room Air 07/08/23 08:39 07/08/23 08:41 07/08/23 08:41 Pulse Rate 89 86 Respiratory Rate 22 Blood Pressure 220/93 H Pulse Oximetry 94 97 Oxygen Delivery Method Room Air 07/08/23 08:45 07/08/23 08:45 07/08/23 09:00 Pulse Rate 82 85 Respiratory Rate 21 28 H Blood Pressure 185/84 H Pulse Oximetry 97 96 Oxygen Delivery Method Room Air 07/08/23 09:00 07/08/23 09:15 07/08/23 09:15 Pulse Rate 83 Respiratory Rate 21 Blood Pressure 191/87 H 171/77 H Pulse Oximetry 97 Oxygen Delivery Method Room Air 07/08/23 09:46 07/08/23 10:00 07/08/23 10:30 Pulse Rate 84 84 86 Respiratory Rate 14 Blood Pressure Pulse Oximetry 97 97 96 Oxygen Delivery Method Room Air 07/08/23 10:32 07/08/23 10:32 07/08/23 10:45 Pulse Rate 85 Respiratory Rate 24 Blood Pressure 187/81 H 169/79 H Pulse Oximetry 99 Oxygen Delivery Method Room Air 07/08/23 10:45 Pulse Rate 84 Respiratory Rate Blood Pressure Pulse Oximetry 98 Oxygen Delivery Method Room Air Oxygen Delivery Method Room Air Narrative Exam Narrative: She is alert and oriented x3. No apparent distress Sclerae are pink and nonicteric. Pupils are equally round and reactive to light and accommodation. Extraocular muscles are intact Heart is regular rate and rhythm without murmur No lymph nodes are felt head, neck, supraclavicular area There is no thyromegaly JVD is less than 6 cm No carotid bruits are heard Lungs are clear to auscultation bilaterally Abdomen is soft, bowel sounds positive, nontender, no organomegaly Extremities have no ankle edema Neurological exam: Cranial nerves 2-12 test intact. Motor function is 5/5 throughout. Deep tendon reflexes are symmetric There is no lateralized deficit There is no dysmetria Babinski's are downgoing bilaterally Skin has no rash or jaundice Objective Labs 07/07/23 22:15 07/07/23 22:15 Labs: Laboratory Results - last 24 hr 07/07/23 07/08/23 22:15 00:09 WBC 8.1 RBC 4.82 Hgb 13.4 Hct 40.0 MCV 83.1 MCH 27.8 MCHC 33.5 RDW 13.4 Plt Count 268 Neut % (Auto) 76.0 H Lymph % (Auto) 15.5 L [place] % (Auto) 5.9 Eos % (Auto) 1.5 L Baso % (Auto) 1.1 Neut # (Auto) 6200 Lymph # (Auto) 1300 [place] # (Auto) 500 Eos # (Auto) 100 Baso # (Auto) 100 PT 9.9 L INR 0.9 APTT 32 Sodium 137 Potassium 3.9 Chloride 101 Carbon Dioxide 25 BUN 20 H Creatinine 1.26 H Estimated GFR 45 L BUN/Creatinine Ratio 15.9 Glucose 232 H Calcium 10.3 H Magnesium 2.0 Total Bilirubin 0.4 AST 34 ALT 19 Alkaline Phosphatase 68 Total Creatine Kinase 210 H Troponin I < 0.012 0.029 Total Protein 8.7 H Albumin 4.6 Globulin 4.1 Albumin/Globulin Ratio 1.1 Lipase 104 Assessment & Plan Assessment & Plan narrative: This is a 72-year-old female with risk factors for stroke who presented with uncontrolled hypertension and then had an acute neurologic event when her blood pressure was brought down with hydralazine. Symptoms resolved and her NIH score is now 0. She is admitted for further observation and measured decrease of her blood pressure at a planned 10% per day. Acute CVA, present admission. Active. -MRI scan shows right frontal lobe ischemia -CT angiogram shows focal right MCA stenosis -aspirin, blood pressure treatment and telemetry recommended by Neurology. -echocardiogram pending -change from simvastatin to high-dose atorvastatin -follow and treat diabetes blood sugars. -no indication for speech therapy, swallowing precautions, PT/OT at this time. Hypertension-paroxysmal, present on admission. Active. -unclear etiology for troublesome levels of blood pressure in the last week. -initial troponin less than 0.012 with follow-up 0.029. -sudden drop in blood pressure precipitated neurologic symptoms suggestive of stroke and confirmed on MRI scan -neurology recommends 10% drop in blood pressure per day. -holding home doses of lisinopril and metoprolol, to be resumed as indicated. Hyperlipidemia -change from simvastatin to high-dose atorvastatin Diabetes mellitus type 2 -follow blood sugars and continue metformin Gout -continue allopurinol SCD for DVT prevention. Avoid anticoagulation due to risk of hemorrhagic transformation for now. Continue aspirin.
--- NOTE | 2023-07-08 12:21 | PC.NURSE ---
Pt's temperature rising (see vitals). Dr. Mendiola being paged overhead for other reasons during report. Jay is willing to update Dr. Mendiola of pt's temperature.
[2023-07-08] MEDS: METFORMIN XR 500 MG TABLET 1000 MG PO (14:31)
[2023-07-08] MEDS: METFORMIN XR 500 MG TABLET PO (18:19)
[2023-07-08] MEDS: ATORVASTATIN 20 MG TABLET 80 MG PO (21:08)
[2023-07-09] VITALS (11 sets, daily range): BP systolic 143–246; BP diastolic 64–101; PULSE 70–104; RESP 14–17; TEMP 36.2–36.8; O2SAT 96–99
[2023-07-09] MEDS: ASPIRIN EC 81 MG TABLET PO (09:18)
[2023-07-09] MEDS: METFORMIN XR 500 MG TABLET PO ×2 (09:18→18:12)
[2023-07-09] MEDS: allopurinoL 100 MG TABLET PO (09:18)
[2023-07-09 11:04] LABS: Add Manual Diff / Slide Review NO; Basophils Absolute Auto 100 /uL (0-100); Basophils Percent Auto 1.4 % (0-2); Eosinophils Absolute Auto 200 /uL (0-450); Eosinophils Percent Auto 2.2 % (2-4); Hemoglobin 13.4 g/dL (12.0-16.0); Lymphocytes Absolute Auto 1500 /uL (1100-4500); Lymphocytes Percent Auto 19.3 % (25-40); Mean Corpuscular HGB Conc 32.8 % (30-36); Mean Corpuscular Hemoglobin 27.4 PG (26-34); Mean Corpuscular Volume 83.6 fL (80-100); Monocytes Absolute Auto 500 /uL (0-900); Monocytes Percent Auto 6.4 % (3-14); Neutrophils Absolute Auto 5600 /uL (1500-7000); Neutrophils Percent Auto 70.7 % (50-75); Platelet Count 275 X10^3/uL (150-400); Red Cell Distribution Width 13.4 % (11.6-14.8)
[2023-07-09 11:15] LABS: BUN Creatinine Ratio 19.8 (6-22); Blood Urea Nitrogen 22 mg/dL (7-17); Calcium 10.2 mg/dL (8.4-10.2); Carbon Dioxide 26 mmol/L (22-32); Chloride 99 mmol/L (98-107); Estimated Glomerular Filt Rate 52 mL/min (>60); Glucose 233 mg/dL (80-110); HEMOLYSIS < 15 (0-50); Sodium 136 mmol/L (137-145)
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
[2023-07-09] MEDS: lisinopriL 20 MG TABLET 40 MG PO (13:52)
[2023-07-09] MEDS: diazePAM 5 MG TABLET PO ×2 (14:30→21:28)
[2023-07-09] MEDS: CITALOPRAM 10 MG TABLET PO (14:30)
--- NOTE | 2023-07-09 17:22 | CM.DPNOTE ---
DCP Note: ASSEMBLY PERSON reviewed EMR. Per PT, cleared to d/c home. Per Rn, echo came back clear but BP remains dangerously high and cannot lower it too quickly. ASSEMBLY PERSON unable to meet with patient due to triaging needs. No needs identified at this time. CM team will complete a comprehensive d/c assessment when able. Likely home when medically stable. CM team will follow closely. KRISTAL Maradiaga
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
[2023-07-09] MEDS: ATORVASTATIN 20 MG TABLET 80 MG PO (21:35)
[2023-07-09] MEDS: SODIUM CHLORIDE 0.9% FLUSH 10 ML IV (21:36)
--- NOTE | 2023-07-09 23:01 | PC.NURSE ---
Addendum entered by Sonia Marina R.N. 07/10/23 01:53: pt bp was 163/78 after valium given not 126/52. tonight pt received a dose of hydralazine 10 mg ivp and b/p went downt to 206/73, pt got up to go to the bathroom tonight and noticed that she was feeling hot and diaphoretic. BS was check and it was 211, bp was lower with SBP IN the 140's. pt kept telling me that medication you gave me is the same one they gave me down in the ER and it was lowering my bp too fast. will update Dr. mcleod. Original Note: pt Bp was elevated around 2142, 226/97, pt asymptomatic Dr. Mcleod notified, Pt has been having difficulty controlling BP, She has been having anxiety too. This nurse gave pt her prn valium 5 mg and once pt bp was rechecked if was 126/52. Pt now has orders for metoprolol po bid and hydralazine 10 mg ivp as needed every 2 hours.
[2023-07-10] VITALS (17 sets, daily range): BP systolic 139–214; BP diastolic 63–94; PULSE 48–106; RESP 16–18; TEMP 36.4–37.7; O2SAT 96–100
[2023-07-10] MEDS: HYDRALAZINE 20 MG/ML VIAL 10 MG IV (00:01)
--- NOTE | 2023-07-10 08:36 | DI.CT.S_ITS ---
PROCEDURE: CT HEAD/BRAIN WO CON INDICATIONS: cva recently, worse facial droop? head bleed? TECHNIQUE: Noncontrast 4.5 mm thick angled axial sections acquired from the foramen magnum to the vertex, with coronal and sagittal reformats. For radiation dose reduction, the following was used: automated exposure control, adjustment of mA and/or kV according to patient size. COMPARISON: [facility], CT, CT ANGIO HEAD AND NECK, 07/08/2023, 2:34. [facility], CT, CT STROKE, 07/08/2023, 2:34. [facility], MR, MR HEAD/BRAIN WO CON, 07/08/2023, 8:14. FINDINGS: Image quality: Excellent. CSF spaces: Basal cisterns are patent. No extra-axial fluid collections. The ventricles are symmetric in size and shape. Brain: No intracranial bleeds or masses. There is cerebral volume loss for age, with resultant ventricular and sulcal prominence. There are periventricular and deep white matter chronic small vessel ischemic changes. There is intracranial internal carotid artery atherosclerosis. Skull and face: Calvarium and visualized facial bones appear intact, without suspicious lesions. Sinuses: Visualized sinuses and mastoids are clear. IMPRESSION: 1. No acute intracranial abnormalities. 2. Cerebral volume loss and chronic microvascular ischemic changes. Dictated by: Alma Leonard M.D. on 07/10/2023 at 9:15 Approved by: Alma Leonard M.D. on 07/10/2023 at 9:17
--- NOTE | 2023-07-10 08:36 | DI.CT.S_ITS ---
PROCEDURE: CT HEAD/BRAIN WO CON INDICATIONS: cva recently, worse facial droop? head bleed? TECHNIQUE: Noncontrast 4.5 mm thick angled axial sections acquired from the foramen magnum to the vertex, with coronal and sagittal reformats. For radiation dose reduction, the following was used: automated exposure control, adjustment of mA and/or kV according to patient size. COMPARISON: [facility], MR, MR HEAD/BRAIN WO CON, 07/08/2023, 8:14. [facility], EC, EC ECHO DOPPLER COMPLETE, 07/09/2023, 9:43. [facility], CT, CT STROKE, 07/08/2023, 2:34. FINDINGS: Image quality: Excellent. CSF spaces: Basal cisterns are patent. No extra-axial fluid collections. The ventricles are symmetric in size and shape. Brain: There is development of low-attenuation within the right frontal temporal lobe, new compared to prior exam. Additional areas of low attenuation are evolving corresponding to previous areas of hyperintense diffusion change on MRI of 07/08/2023. No intracranial bleeds or masses. There is cerebral volume loss for age, with resultant ventricular and sulcal prominence. There are periventricular and deep white matter chronic small vessel ischemic changes. There is intracranial internal carotid artery atherosclerosis. Incidental note of previous hyperintensity along the right cortical surface is not well seen on current exam. Skull and face: Calvarium and visualized facial bones appear intact, without suspicious lesions. Sinuses: Visualized sinuses and mastoids are clear. IMPRESSION: Expected evolving changes of subacute ischemia when correlated with recent MRI. No superimposed acute hemorrhage. Dictated by: Zaira Mcgovern M.D. on 07/10/2023 at 13:22 Approved by: Zaira Mcgovern M.D. on 07/10/2023 at 13:23
[2023-07-10] MEDS: lisinopriL 20 MG TABLET 40 MG PO (10:08)
[2023-07-10] MEDS: METFORMIN XR 500 MG TABLET PO (10:08)
[2023-07-10] MEDS: METOPROLOL IR 25 MG TABLET PO ×2 (10:09→20:39)
[2023-07-10] MEDS: allopurinoL 100 MG TABLET PO (10:09)
[2023-07-10] MEDS: SODIUM CHLORIDE 0.9% FLUSH 10 ML IV ×2 (10:09→20:39)
[2023-07-10] MEDS: ASPIRIN EC 81 MG TABLET PO (10:09)
[2023-07-10] MEDS: diazePAM 5 MG TABLET PO (10:09)
[2023-07-10] MEDS: CITALOPRAM 10 MG TABLET PO (10:09)
--- NOTE | 2023-07-10 10:24 | PC.NURSE ---
Pt A&Ox4, but unsure of number date, aware that it's Monday in June,, and pt states she did not sleep well last night and c/o R hip pain d/t bed. Pt looked very tired today. Per night RN, Pt recieved IV dose of Hydralazine last night per MD order d/t high systolic BP in 200s (refer to chart for VS), NIH= 1 d/t minor L side facial droop. @ 0700, pt still just exhibits minor L side facial droop. VS have been stable, MD allowing for permissive HTN. ordered head CT scan. Morning meds held until results of CT. CT negative. okayed administering meds. When administering meds, Pt was having difficulty holding med cup up to mouth, and was spilling meds onto bed. RN helped pt take meds into mouth. Pt then had difficulty swallowing meds. Pt stated she was having a hard time swallowing today while eating breakfast, and was eating her breakfast more slowly today than yesterday. NIH=3 around 1000, notified, new orders for OT/PT/ST consult. Pt exhibiting minor L facial droop, difficulty swallowing pills, some L arm drift and L arm dysmetria. notified. Changed NIH to Q4. Around 1030, pt's was calling out for RN to come to room to help pt. RN came into room to find pt choking and gagging. RN asked what happened. stated he gave pt about a teaspoon of water and she began to choke. RN had [employer] INTERN grab suction tubing, sat pt at 90 degree angle, encouraged to cough hard. O2 sats were dropping to 78% RA, applied nasal cannula with 4LO2 and continuous pulse Ox monitoring, pt sats rising. Oral suction performed and effective for pt. Auscultated lungs, upper lobes were crackly. notified. Chest Xray ordered and IV bolus to support permissive HTN. Pt sating @ 95% 1LO2, resting comfortably. Instructed pt's to not give pt anything by mouth until speech eval, understood. Care plan continues.
--- NOTE | 2023-07-10 10:52 | DI.RAD.S_ITS ---
PROCEDURE: XR CHEST 1V INDICATIONS: aspiration, pneumonia? TECHNIQUE: One view of the chest was acquired. COMPARISON: [facility], CR, XR CHEST 1V, 07/07/2023, 22:21. FINDINGS: Surgical changes and devices: None. Lungs and pleura: Lungs are clear. No pleural effusions or pneumothorax. Mediastinum: Mediastinal contours appear normal. Heart size is enlarged. Bones and chest wall: No suspicious bony lesions. Overlying soft tissues appear unremarkable. IMPRESSION: Portable chest within normal limits for age. Dictated by: Zaira Mcgovern M.D. on 07/10/2023 at 11:22 Approved by: Zaira Mcgovern M.D. on 07/10/2023 at 11:22
[2023-07-10] MEDS: SODIUM CHLORIDE 0.9% 1,000 ML 1000 ML IV (11:00)
[2023-07-10 11:26] LABS: Hematocrit 37.7 % (36-46); Hemoglobin 12.7 g/dL (12.0-16.0); Mean Corpuscular HGB Conc 33.6 % (30-36); Mean Corpuscular Hemoglobin 27.9 PG (26-34); Mean Corpuscular Volume 82.9 fL (80-100); Platelet Count 272 X10^3/uL (150-400); Red Blood Cell Count 4.55 X10^6/uL (4.0-5.2); Red Cell Distribution Width 13.3 % (11.6-14.8); White Blood Cell Count 9.2 X10^3/uL (4.5-11.0)
[2023-07-10 11:28] LABS: BUN Creatinine Ratio 27.2 (6-22); Blood Urea Nitrogen 28 mg/dL (7-17); Carbon Dioxide 23 mmol/L (22-32); Chloride 102 mmol/L (98-107); Estimated Glomerular Filt Rate 57 mL/min (>60); Glucose 210 mg/dL (80-110); HEMOLYSIS 17 (0-50); Lactate (Lactic Acid) 2.2 mmol/L (0.7-2.1); Potassium 4.4 mmol/L (3.4-5.1); Sodium 135 mmol/L (137-145)
[2023-07-10 12:18] LABS: NT-proBNP (BNP-Adult 18+) 133 pg/mL (<125)
[2023-07-10 12:44] LABS: Reflexed Lactate in 2 Hours Y
[2023-07-10] MEDS: CLOPIDOGREL 75 MG TABLET 300 MG PO (12:54)
[2023-07-10 13:46] LABS: Lactate 2HR (Lactic Acid Rflx) 2.7 mmol/L (0.7-2.1)
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
[2023-07-10] MEDS: ACETAMINOPHEN IV 1,000 MG/100 ML VIAL 400 MG IV (15:15)
--- NOTE | 2023-07-10 15:28 | ST.IPCSEOM ---
Visit Care Team Role Provider Type Valorie Kilpatrick DO Emergency Provider Physician Referring Provider Specialty: Emergency Medicine Address: [address] [place] [address], [id number] Email: [email or web address] Whitney Mendiola MD Admit Provider Physician Attending Provider Specialty: Medical Address: [address] [place] [address], [phone] Email: [email or web address] Current Diagnoses Cerebral infarction, unspecified (07/08/23) Past Medical History (Last Updated 07/08/23 @ 20:16 by Whitney Mendiola MD) Diabetes mellitus (Medical) Gout (Medical) Hyperlipidemia (Medical) Hypertension (Medical) Hypertension (Medical) Speech-Language Pathology Swallow Evaluation [facility] Clinical Swallow Evaluation Start: 07/10/23 12:30 Freq: Status: Active Protocol: Document 07/10/23 12:31 (Rec: 07/10/23 12:52 [id number]) Clinical Swallow Evaluation Session Time Visit Start Time 11:15 Visit Stop Time 12:30 Total Visit Minutes 75 Referral Referring Provider hospitalist Reason for Referral cva, concerns for dysphagia, poss cognition Setting Assessment Location Acute Care Visit Type Note Type Initial evaluation Patient Information History Per H&P: This is a 72-year- old female with hypertension, gout, diabetes mellitus and hyperlipidemia who presents with stroke symptoms. She came to the ED yesterday with blood pressures in the 200 systolic and above 100 diastolic range. She was having vague facial tingling/ symptoms. She was treated with hydralazine with the blood pressure dropping substantially and then developing left upper extremity and left facial drooping with speech irregularity. Her initial CT scan did not show a stroke. 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 She had been evaluated [address] [facility] for similar symptoms and treated with blood pressure medicine without symptoms. Her MRI scan today shows a right frontal lobe area of ischemia. Her neurologic symptoms have completely resolved. . However, nursing noted continued facial droop, confusion and fatigue, and pt demonstrated incidence of severe cough following intake of thin liquids. ST referred for concerns of dysphagia and cognitve screen Subjective Observations Pt initally demonstrated extreme difficulty to rouse for eval. ST returned later following first attempt to complete. Swallow: ST assisted in repositioning to fully upright and attempted to complete clinical swallow eval, ST unable to fully complete d/t lethargy. Per spouse, bronwyn instance of aspiration occurred with thin liquids via straw when pt was partially reclined. Given her fatigue level, reclined position and thin liquid through a straw, this may have been an isolated instance. However, Mild facial and lingual left weakness noted, which may transfer to pharymgeal deficits. ST returned later in day for accurate assessment. ST provided caregiver and patient education on need for being fully upright for all intake, with possible need of compensatory strategies of being fully upright, small sips, small straws, taking her time w intake and softer foods. cognitive: Pt able to verbalize name and location, however, drifted back to sleep and was not appropriate for accurate cognitive eval at this time. Per spouse, Lamonte, pt's speech has improved significantly, with some residual slurring. Given MRI findings of multifocal semi diffuse ichemia in the Right frontal lobe, deficits are more likely to be in attention , working memory, and higher level executive function. ST provided family education on possible deficits and recommended ST for language/ cognition as an outpatient should she present with onging deficits post acute care. Reported by Patient/Caregiver Other Symptoms Coughing,Difficulty swallowing liquids Current Diet Regular (IDDSI 7) Baseline Feeding Method Independent in self-feeding The IDDSI Framework Protocol: IDDSI.1 Objective Assessment Mental Status Cooperative,Confused,Lethargic Oral Integrity WFL Dentition Within normal limits Lip Function Mild impairment Observation of Lips at Rest Left sided weakness/Drooping Pucker Reduced strength,Left sided weakness/drooping Lip Retraction Left sided weakness/Drooping Alternating Pucker/Lip Retraction Incoordination Tongue Function Mild impairment Tongue Protrusion Deviates to the left,Reduced strength Tongue Lateralization Reduced range of motion, Reduced strength, Incoordination Jaw Function Within normal limits Food and Liquid Trials Position During Assessment Upright (90 degrees),In bed Liquids Trialed Thin (IDDSI 0) Solid Trials Minced & Moist (IDDSI 5), Regular (IDDSI 7) Administration Type Cup single sip,Controlled cup sip,Straw Oral Impairment Mildly impaired Oral Phase Comments Facial asymmetry noted on left side, mild. Dentition/ dentures in fair condition, mildly reduced strength and coordination of lips and tongue. reduced bolus control. Pt reports increase in biting her tongue indicative of possible reduced sensation or of noted mild lingual incoordination. Mild pocketing noted left buccal with cracker, cleared w verbal cue. Oral hygiene reported as good. Respiratory support reduced. Voice WNL Pharyngeal Impairment Mildly impaired Pharyngeal Phase Comments throat clear noted with cup drink of thin liquids. No overt s/s noted with trials of small sips vis smaller sized straw or very small cup sip. Fatigue/Endurance Moderate fatigue Comment Patient appears appropriate to remain on thin liquids, with reduced diet to soft and bite sized solids, with use of compensatory strategies of small bites and sips, smaller dimension straw, upright for all intake, , tongue sweep to clear left buccal cavity and good oral care [place] Swallow Protocol No The IDDSI Framework Protocol: IDDSI.1 Findings Swallowing Function Oropharyngeal phase dysphagia Severity of Swallow Impairment Mildly impaired Contributing Factors to Swallow Reduced oral strength/ Impairment coordination/sensation Prognosis Good Based on Family support,Duration of symptoms/severity Comment Pt presents with oropharyngeal dysphagia, demonstrated by mild labial and lingual weakness and discoordination, resulting in reduced bolus control, mild left buccal pocketing, and possible premature spillage. Deficts may be able to be handled with compensatory strategies at this time (soft and bite sized solids, small bites and sips, upright positioning, and use of a small sized straw for intake.) Subjectively, pt demonstrated mild cognitive deficits s/p CVA, but it is unclear if they will be transitive or lasting at this point d/t fatigue level. ST provided family and patient education on findings and recommended strategies for swallowing deficits, with recommendation to pursue ST as an outpatient should swallowing and cognitive deficits not quickly resolve. Pt would benefit from further ST should she remain in acute care for further evaluation and ensuring recall/use of compensatory strategies. Impact on Safety and Functioning Risk for aspiration Recommendations Instrumental Assessment No Swallowing Treatment Yes Recommended Solids Soft & Bite-sized (IDDSI 6) Recommended Liquids Thin (IDDSI 0) Safety Precautions/Swallowing Remain upright (90 degrees) Recommendations during all oral intake,Needs verbal cues to use recommended strategies,Small bites and sips when eating,Slow rate; swallow between bites Medication Recommendations As Tolerated Discharge Recommendations Home Education Patient/Caregiver Education Patient expressed understanding of evaluation, Patient expressed agreement with goals & treatment plans, Family/caregivers expressed understanding of evaluation, Family/caregivers expressed agreement with goals & treatment plans Goals Long-term Goals Patient will utilize compensatory strategies given mild/mod verbal, and visual cues with optimum safety and efficiency of swallowing function on P.O. intake with min/no overt signs and symptoms of aspiration for the highest appropriate diet level
--- NOTE | 2023-07-10 15:53 | PT-IP ANOTE ---
Pt was evaluated by PT on 07/09/23. No deficits were appreciated and pt was discharged from acute PT service. NIH was 0 at the time. NIH climbed to 3 today. Attempted reassessment but pt was too fatigued to participate after completing OT eval. Will reassess next service date. - Kendal Salazar, PT, DPT
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
[2023-07-10 17:52] LABS: Appearance Urine UA CLEAR; Bilirubin Urine UA NEGATIVE (NEGATIVE); Color Urine UA YELLOW; Glucose Urine UA NEGATIVE (Negative); Ketones Urine UA NEGATIVE (NEGATIVE); Leukocyte Esterase Urine UA NEGATIVE (NEGATIVE); Nitrite Urine UA NEGATIVE (Negative); Occult Blood Urine UA TRACE-INTACT (Negative); Protein Urine UA 1+ (Negative); Specific Gravity Urine UA 1.025 (1.000-1.035); Urobilinogen Urine UA 0.2 E.U./dL (0.2)
[2023-07-10 18:00] LABS: pH Urine UA 5.5 (4.5-8.0)
[2023-07-10 18:03] LABS: Bacteria Urine Occasional (0-1); Culture Indicated Urine Cult Not Indicated; RBC Urine 0-1/HPF (0-5/HPF); Squamous Epithelial Cell Urine 0-1 /HPF (0-5/HPF); WBC Urine 1-5/HPF (0-5/HPF)
--- NOTE | 2023-07-10 20:13 | P.PN_ITS ---
Subjective Subjective Date Patient Seen: 07/10/23 Time Patient Seen: 08:00 Interval history: Today she and her noted a change in her symptoms. She had speech and swallow difficulties and a reoccurrence of her left facial droop. She had stat CT head which noted no worsening of her infarct. I did discuss with the stroke attending who recommended loading with plavis and dual antiplatelet for 90 days. They said there was no role for tpa or thrombectomy. They encouraged good blood pressure management. Exam Vital Signs (past 8 hours): - 07/10/23 15:13 07/10/23 16:24 Temperature 99.8 F H 98.3 F Pulse Rate 80 Respiratory Rate 18 Blood Pressure 198/80 H Pulse Oximetry 98 Oxygen Flow Rate 0 Oxygen Delivery Method Room Air Oxygen Flow Rate 0 Narrative Exam Narrative: GEN: no acute distress CV: regular rate and rhythm, no murmurs PULM: clear bilaterally, no wheezes ABD: soft, nontender, nondistended EXT: warm and well perfused with no edema NEURO: left sided facial droop, dysarthria, no weakness noted in upper or lower extremities Objective Labs 07/10/23 11:04 07/10/23 11:04 Labs: Laboratory Results - last 24 hr 07/10/23 07/10/23 07/10/23 11:04 13:20 17:11 WBC 9.2 RBC 4.55 Hgb 12.7 Hct 37.7 MCV 82.9 MCH 27.9 MCHC 33.6 RDW 13.3 Plt Count 272 Sodium 135 L Potassium 4.4 Chloride 102 Carbon Dioxide 23 BUN 28 H Creatinine 1.03 Estimated GFR 57 L BUN/Creatinine Ratio 27.2 H Glucose 210 H Lactate 2.2 H 2.7 H Calcium 10.0 NT-Pro-B Natriuret Pep 133 H Urine Color Yellow Urine Appearance Clear Urine pH 5.5 Ur Specific Amelia 1.025 Urine Protein 1+ H Urine Glucose (UA) Negative Urine Ketones Negative Urine Occult Blood Trace-intact Urine Nitrate Negative Urine Bilirubin Negative Urine Urobilinogen 0.2 Ur Leukocyte Esterase Negative Urine RBC 0-1/hpf Urine WBC 1-5/hpf Ur Squamous Epith Cells 0-1 /hpf Urine Bacteria Occasional (0-1) Ur Culture Indicated? Cult not indicated PFSH Medical History (Updated 07/08/23 @ 20:16 by Whitney Mendiola MD) Diabetes mellitus Hyperlipidemia Hypertension Gout Hypertension Surgical History (Updated 07/08/23 @ 20:17 by Whitney Mendiola MD) History of cataract surgery H/O hysterectomy with unilateral oophorectomy Social History household members: spouse Smoking Status: Never smoker alcohol intake: never Assessment & Plan Assessment & Plan narrative: 1. Acute CVA -MRI scan shows right frontal lobe ischemia -CT angiogram shows focal right MCA stenosis -aspirin, plavix and blood pressure treatment and telemetry recommended by Neurology. -echocardiogram with EF 70-75%, LVH, no PFO -changed from simvastatin to high-dose atorvastatin -follow and treat diabetes blood sugars. -PT, OT, speech -keep on tele, no afib noted for now 2. Hypertensive urgency -unclear etiology for troublesome levels of blood pressure in the last week, but possibly due to stress and anxiety -initial troponin less than 0.012 with follow-up 0.029. -sudden drop in blood pressure precipitated neurologic symptoms suggestive of stroke and confirmed on MRI scan -neurology recommends 10% drop in blood pressure per day. -now resuming home lisinopril 40mg daily, down from BID 3. Anxiety and stress - notes recent panic attacks, and patient under alot of stress -start celexa 10mg daily and po valium PRN for anxiety 4. Hyperlipidemia -change from simvastatin to high-dose atorvastatin 5. Diabetes mellitus type 2 -follow blood sugars and continue metformin 6. Gout -continue allopurinol Quality VTE Deep Vein Thrombosis/Pulmonary Embolism Present on Admission: No
[2023-07-10 20:30] LABS: Lactate (Lactic Acid) 2.8 mmol/L (0.7-2.1)
[2023-07-10] MEDS: ATORVASTATIN 20 MG TABLET 80 MG PO (20:38)
[2023-07-10 21:42] LABS: Reflexed Lactate in 2 Hours Y
[2023-07-10] MEDS: PIPERACILLIN/TAZO 4.5 GM in SODIUM CHLORIDE 0.9% 100 ML IV (21:47)
[2023-07-10] MEDS: LACTATED RINGERS 1,000 ML 1000 ML IV (21:47)
[2023-07-10 22:12] LABS: Lactate 2HR (Lactic Acid Rflx) 1.1 mmol/L (0.7-2.1)
[2023-07-11] MEDS: PIPERACILLIN/TAZO 3.375 GM in SODIUM CHLORIDE 0.9% 100 ML IV ×2 (01:29→09:59)
[2023-07-11 03:00] VITALS: BP 172/65; PULSE 66; RESP 16; TEMP 36.3; O2SAT 98
[2023-07-11 06:35] LABS: Hematocrit 34.5 % (36-46); Hemoglobin 11.6 g/dL (12.0-16.0); Mean Corpuscular HGB Conc 33.6 % (30-36); Mean Corpuscular Hemoglobin 27.9 PG (26-34); Mean Corpuscular Volume 83.1 fL (80-100); Platelet Count 235 X10^3/uL (150-400); Red Blood Cell Count 4.16 X10^6/uL (4.0-5.2); Red Cell Distribution Width 13.1 % (11.6-14.8); White Blood Cell Count 8.4 X10^3/uL (4.5-11.0)
[2023-07-11 06:44] LABS: Lactate (Lactic Acid) 1.1 mmol/L (0.7-2.1)
[2023-07-11 06:45] LABS: BUN Creatinine Ratio 18.8 (6-22); Blood Urea Nitrogen 21 mg/dL (7-17); Calcium 8.9 mg/dL (8.4-10.2); Carbon Dioxide 18 mmol/L (22-32); Chloride 103 mmol/L (98-107); Estimated Glomerular Filt Rate 52 mL/min (>60); Glucose 150 mg/dL (80-110); HEMOLYSIS < 15 (0-50); Potassium 4.1 mmol/L (3.4-5.1); Sodium 134 mmol/L (137-145)
--- NOTE | 2023-07-11 09:14 | CM.DPC ---
Addendum entered by Rupa Gonsales R.N. 07/11/23 11:05: DCP Cont: Patient has improved with therapy, most likely not eligable for inpatient rehab. Updated Brenda at [facility] in a message, she had also called prior indicated may be doing too well for inpatient rehab. Met with spouse, discussed home health options, 'does not feel that she needs it. Encouraged him while she is here, if he changes his mind, to let this DC Right Of Way Clearer know, otherwise, since she most likely will discharge today, he can have her provider order it, since she will need a follow up appointment. Addendum entered by Rupa Gonsales R.N. 07/11/23 09:40: Patient is currently working with O.T, spouse in the room, dropped off the brochure for [facility]patient [facility] rehab. Original Note: DCP Cont: Did have YESENIA Felix senior administrative assistant, send referral over to [facility]. Confirmed with Brenda at [facility], that they do have beds available. Will discuss with patient and family today. P: DCP to continue to follow, will see if patient and spouse are willing to attempt inpatient acute rehab. Rupa Gonsales RN/Tumblers Supervisor
--- NOTE | 2023-07-11 09:50 | OT.IP.TRT ---
Current Diagnoses Cerebral infarction, unspecified (07/08/23) Occupational Therapy Treatment Note M2 OT-IP Current Condition Start: 07/10/23 13:04 Freq: Status: Active Protocol: Document 07/10/23 14:48 CGR (Rec: 07/10/23 15:15 CGR [id number]) Occupational Therapy Current Condition Current Condition Evaluation Date 07/10/23 Treatment Diagnosis CVA with L sided involvement Diagnosis Onset Date 07/08/23 M3 OT- IP Subjective and Pain Start: 07/10/23 13:04 Freq: Status: Active Protocol: Document 07/11/23 09:10 [facility] (Rec: 07/11/23 10:33 [facility] [id number]) OT- Subjective Occupational Therapy Visit Type Type Treatment Note Visit Start Time 09:10 Visit Stop Time 09:50 Total Visit Minutes 40 Occupational Therapy Visit Comments Patient Comments Pt very sleepy and needing increased time to respond to questions. Pt's present for the beginning and end of the session. Patient/Caregiver Goals To go home. OT Pain Assessment Pain When Pain Assessed At Rest Pain Present Pain Present Denied Pain M4 OT- IP ADL's Start: 07/10/23 13:04 Freq: Status: Active Protocol: Document 07/11/23 09:10 [facility] (Rec: 07/11/23 10:33 [facility] [id number]) OT [id number] Comments OT Self-Feeding Comments not meal time OT ADL-Grooming Comments OT Grooming Comments Able to do while standing at this sink. OT ADL-Oral Care Comments Oral Care Comments Pt able to do without any issues. OT ADL-Dressing General Eval Lower Body Dressing Ability Independent Areas Needing Assistance Socks Comments OT Dressing Comments Pt able to araceli/doff her socks with increased time today while sitting on the edge of the bed with cushion under her feet. OT ADL-Toileting Comments OT Toileting Comments Pt states has been using the bathroom on her own. OT ADL-Bathing Comments OT Bathing Comments Not performed. M5 OT- IP IADL's Start: 07/10/23 13:04 Freq: Status: Active Protocol: Document 07/10/23 14:48 [facility] (Rec: 07/10/23 15:15 CGR [id number]) OT-Instrumental Activities of Daily Living Deficits IADL Deficits Identified Deficits Home Safety Awareness Awareness of Need for Assistance at Home Decreased Awareness Ability to Problem Solve Emergency Able to Problem Solve Situations Medication Management Medication Management Comments can perform but needs further testing on if pt is capable. Money Management Money Management Comments can perform but needs further testing on if pt is capable. Meal Preparation Meal Preparation Comments can perform but needs further testing on if pt is capable. Packing Line Operator Packing Line Operator Comments can perform but needs further testing on if pt is capable. Driving Driving Comments educated pt that she is not safe to drive at this time. M6 OT- IP Functional Cognition Start: 07/10/23 13:04 Freq: Status: Active Protocol: Document 07/11/23 09:10 [facility] (Rec: 07/11/23 10:33 [facility] [id number]) Cognitive Factors Limiting Selfcare Function Cognitive Ability Ability to Follow Commands Able to Follow One Step Commands with Increased Time, Able to Follow One Step Commands with Repetition Memory Description Short Term Impaired,Working Impaired Problem Solving Ability Unable to Identify Errors, Needs Assist to Identify Solutions Executive Function Ability Unable to Switch Focus,Unable to Filter Distractions,Unable to Make Plans,Unable to Organize Plans,Unable to Remember Details Cognitive Comments Cognitive Assessment Comments Pt having difficulty to retain information and process for May Making Part B and when asked to brush her teeth. When asking pt , it was determined that pt is needing increased time to process and think and at this time is trying to think in Tagalog and Urdu, as before able to think in Urdu. Pt not able to task switch between numbers and letter at this time. In addition pt having difficulty to look to the left and having some neglect and needing cues to turn her head and eyes. Therefore pt is having severe impairments for visual attention, speed of processing , mental flexibility, task switching, and executive functioning. Pt not able to remember all the details form the hospitalist regarding her eye drops and that they want go gradually decrease her blood pressure at this time. Educated pt's to be mindful to give her assist and supervision as needed. Pt would benefit to incorporate stress management techniques to help with her stress. Initiated suggestions to pt. OT- Vision and Hearing OT- Vision Assessment Visual Spacial Neglect Left M7 OT- IP Mobility and Balance Start: 07/10/23 13:04 Freq: Status: Active Protocol: Document 07/11/23 09:10 [facility] (Rec: 07/11/23 10:33 [facility] [id number]) OT-Transfer Assessment Comments Mobility Comments SBA and able to get to the sink and back on her own. OT- Balance Assessment Sitting Balance and Reactions Static Sitting Balance Ability Normal Dynamic Sitting Balance Ability Good Standing Balance and Reactions Static Standing Balance Ability Good Dynamic Standing Balance Ability Fair M8 OT- IP Objective Assessments Start: 07/10/23 13:04 Freq: Status: Active Protocol: Document 07/10/23 14:48 [facility] (Rec: 07/10/23 15:15 [facility] [id number]) OT Gross Range of Motion Upper Extremity Range of Motion Assessment Within Functional Limits OT Strength Upper Extremity Strength Assessment Within Functional Limits Comments Strength Comments grossly 4/5 with little to no deficit in strength seen to the L side OT- Coordination Assessment Upper Extremity Finger to Nose Test Left UE Impaired Finger Tapping Test Left UE Impaired Comments Coordination Comments L sided drift with UE OT-Muscle Tone Assessment Muscle Tone WNL Yes OT Sensation Assessment Comments Summary Comments Pt states sensation is typical Edema Edema Absent M9 OT- IP Assessment and Plan Start: 07/10/23 13:04 Freq: Status: Active Protocol: Document 07/11/23 09:10 [facility] (Rec: 07/11/23 10:33 [facility] [id number]) OT Summary Assessment and Plan Potential Rehabilitation Potential Excellent Analytic Complexity at Evaluation Moderate Summary OT Impairments Balance,Coordination, Functional Cognition, Functional Mobility,Grooming, Dressing,Toileting,Bathing, Toilet Transfers,Shower Transfers,Activity Tolerance Progress Towards Goals Progressing Toward Goals Assessment Summary Pt still having left neglect, problem solving, highly distracted and memory deficits . Pt not wanting to go to acute rehab at this time and wanting to go home. Pt's has good understanding to be able to assist pt at this time. Pt would benefit from home health OT and DIRECTOR LEARNING to work on FMS with left hand and left neglect for her vision for OT needs. Pt would great benefit from short acute rehab versus home with OT and DIRECTOR LEARNING. Goals Grooming Goal Independent Dressing Goal Independent Toileting Goal Independent Bathing Goal Independent Toilet Transfer Goal Independent Shower Transfer Goal Independent OT-Other Goals Pt to be able to incorporate strategies for left neglect during ADl and mobility needs 100%. Days to Meet Goals 7 Frequency of Treatment Frequency Of Treatment Once a Day Treatment Plan OT Treatment Plan ADL Training,Functional Cognition Training,Functional Mobility,Patient/Family Education,Discharge Planning Discharge Recommendations OT Discharge Recommendations Home with Assistance,Home Health,Acute Rehab Transportation Needs at Discharge Private Vehicle
[2023-07-11] MEDS: allopurinoL 100 MG TABLET PO (09:57)
[2023-07-11] MEDS: METOPROLOL IR 25 MG TABLET PO (09:58)
[2023-07-11] MEDS: CLOPIDOGREL 75 MG TABLET PO (09:58)
[2023-07-11 09:59] VITALS: BP 173/77; PULSE 75
[2023-07-11] MEDS: SODIUM CHLORIDE 0.9% FLUSH 10 ML IV (09:59)
[2023-07-11] MEDS: CITALOPRAM 10 MG TABLET PO (09:59)
[2023-07-11] MEDS: lisinopriL 20 MG TABLET 40 MG PO (09:59)
[2023-07-11] MEDS: ASPIRIN EC 81 MG TABLET PO (09:59)
[2023-07-11 11:00] VITALS: BP 173/75; PULSE 74
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
[2023-07-11] MEDS: INSULIN LISPRO 100 UNIT/ML 3ML VIAL SUBCUT ×2 (12:21→17:14)
[2023-07-11 15:00] VITALS: BP 160/66; PULSE 80; RESP 17; TEMP 36.6; O2SAT 97
--- NOTE | 2023-07-11 17:23 | ST.IPSLE ---
Visit Care Team Role Provider Type Valorie Kilpatrick DO Emergency Provider Physician Referring Provider Specialty: Emergency Medicine Address: [address] [place] [address], [id number] Email: [email or web address] Whitney Mendiola MD Admit Provider Physician Attending Provider Specialty: Medical Address: [address] [place] [address], [phone] Email: [email or web address] Current Diagnoses Cerebral infarction, unspecified (07/08/23) Past Medical History (Last Updated 07/08/23 @ 20:16 by Whitney Mendiola MD) Diabetes mellitus (Medical) Gout (Medical) Hyperlipidemia (Medical) Hypertension (Medical) Hypertension (Medical) Speech-Language Pathology Speech/Language Eval [employer] Adult Cognitive Linguistic Eval Start: 07/11/23 16:56 Freq: Status: Active Protocol: Document 07/11/23 16:56 CG (Rec: 07/11/23 17:21 [id number]) Adult Cognitive Linguistic Evaluation Session Time Visit Start Time 10:00 Visit Stop Time 10:25 Total Visit Minutes 25 Referral Referring Provider hospitalist Reason for Referral cva, concerns for dysphagia, poss cognition Setting Assessment Location Acute Care Patient Information Patient History Per H&P: This is a 72-year- old female with hypertension, gout, diabetes mellitus and hyperlipidemia who presents with stroke symptoms. She came to the ED yesterday with blood pressures in the 200 systolic and above 100 diastolic range. She was having vague facial tingling/ symptoms. She was treated with hydralazine with the blood pressure dropping substantially and then developing left upper extremity and left facial drooping with speech irregularity. Her initial CT scan did not show a stroke. 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 She had been evaluated 2 days before this at [facility] for similar symptoms and treated with blood pressure medicine without symptoms. Her MRI scan today shows a right frontal lobe area of ischemia. Her neurologic symptoms have completely resolved. . However, nursing noted continued facial droop, confusion and fatigue, and pt demonstrated incidence of severe cough following intake of thin liquids. ST referred for concerns of dysphagia and cognitve screen Language(s) Spoken in the Home Bulgarian, Tagalog. Tagalog is first language. Hearing Hearing Level Normal Vision Vision Status Not Impaired Comments Left neglect Subjective Patient Report Pt was partially reclined in bed upon ST entry to room with nurse and nursing admin present administering medications. She was awake, but apparently fatigued and stated she wanted to catch up on rest. However, she was pleasant and agreeable to [employer] assessment of cognition with SLUMS. Of note, as nurse and student were providing medications, the pt did not notice that she had two more pills left in her left hand that had been placed by RN. She required cueing from RN to attend to medications and take meds. Generally, her gaze did not cross midline and she attended only to the right side of her visual field. She did present with mild left facial droop. When [employer] stated she didn't want to distract the pt while swallowing her pills, pt stated, That's good, because if I get distracted, I can choke. This indicates that the pt has at least some awareness of her dysphagia and swallowing precautions. She also stated unprompted, I also have to take small sips, indicating good carryover of some trained swallow strategies from previous [employer] visit. Assessment Oral Motor Examination Completed No Results OME completed during CSE on Informal Assessment Receptive Language Normal No Receptive Language Impairment(s) Following 2-step commands Expressive Language Normal Yes Pragmatic Language Normal Yes Speech Normal No Speech Impairment(s) Imprecise articulation Cognition Normal No Cognitive Impairment(s) Attention,Executive functioning,Problem solving, Reasoning Formal Assessment Standardized Test/Screener Type [facility] Mental Status ([facility]) Administration Complete Results - See Findings for details Findings/Results Language Function Mildly impaired Cognitive Function Moderately impaired Findings As of yesterday during clinical swallow evaluation, the pt was able to verbalize name and location, however, drifted back to sleep and was not appropriate for accurate cognitive eval at that time. Per spouse, Lamonte, pt's speech had improved significantly, with some residual slurring. This assessment of her speech was consistent with today's evaluation. The pt was 100% intelligible but with some mild slurring remaining due to left sided facial weakness. Her receptive language was functional for conversation and all interactions were pleasant and appropriate; however, she was unable to understand directions for number reversal task on SLUMS and needed additional cue to follow second step of two-step direction for clock drawing. Expressively, she shows very mild deficits in divergent naming based on performance on the SLUMS. Confrontation naming was not assessed; however, word-finding deficits were not noted during conversation. No paraphasias were noted. Intonation/ inflection/affect appeared generally appropriate for situation aside from mildly flat affect which may have been due to fatigue. Per chart, MRI findings showed multifocal semi diffuse ichemia in the Right frontal lobe, indicating deficits would most likely be in attention, working memory, and higher level executive function. This is consistent with deficits noted during SLUMS and informal observation . Of concern, she demonstrates signs of left neglect which may impact safety. For example, she was unable to recognize that she still had medications left in her left hand during medication administration. This also manifested in clock drawing task, in which she doubled up the number 10 on the left side of the clock, and left sided numbers were generally distributed unevenly. Overall, she is unable to independently monitor her left visual field at this time which poses safety risks if left alone without assistance. Additionally, she demonstrated deficits in problem solving and working memory as evidenced by difficulty with calculation task on SLUMS as well as number reversal task. This may impact her ability to complete IADLs, particularly medication management, especially combined with her visual neglect. 1:1 assistance with medications is recommended at this time. Overall, pt scored a 16/30 on the SLUMS, which is indicative of significant cognitive deficits which may impact safety. However, based on previous reports, she appears to have made significant progress in cognitive-linguistic domains since her CVA, and will likely continue to experience some spontaneous return of function as she continues to recover. Additionally, she did demonstrate independent recall of some safe swallowing strategies introduced two days ago, which is positive for prognosis. Cognitive Communication Deficits Self-awareness of Cognitive- Situational awareness ( Communication Deficits recognition of problem in context;in real time) Concomitant Factors Concomitant Factors Visual field neglect Comment Left neglect Impact on Functioning Activity Limits/Particip.Rest. Mild: General Tasks and Demands Interpersonal Interactions Mod: Household Tasks Safety Risks Mod: Being Left Alone at Home Reacting to Emergency Sev: Managing Medication Traveling Alone in Community Prognosis Prognosis Good Based on Time since onset,Other ( comment) Comment Progress since onset Plan of Care Speech-Language Treatment Yes Frequency Daily while inpatient as needed Duration Until d/c from inpatient Patient/Caregiver Education Described results of evaluation,Patient expressed understanding of evaluation, Patient requires further education/training,Family/ caregivers require further education/training Short Term Goals 1. Pt and family will benefit from education regarding cognitive changes s/p CVA in order to develop strategies for increasing safety at home after discharge. 2. Pt will answer questions related to stimuli in her left visual field in 80% of opportunities independently in order to decrease left neglect and increase safety with ADLs/IADLs. Discharge Recommendations Home,Home with Home Health
--- NOTE | 2023-07-12 20:06 | PM.DS.1 ---
History of Present Illness History of Present Illness Date Patient Seen: 07/08/23 Chief complaint: high blood pressure Narrative: Per admitting physician: This is a 72-year-old female with hypertension, gout, diabetes mellitus and hyperlipidemia who presents with stroke symptoms. She came to the ED yesterday with blood pressures in the 200 systolic and above 100 diastolic range. She was having vague facial tingling/symptoms. She was treated with hydralazine with the blood pressure dropping substantially and then developing left upper extremity and left facial drooping with speech irregularity. Her initial CT scan did not show a stroke. 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 She had been evaluated [address] [facility] for similar symptoms and treated with blood pressure medicine without symptoms. Her MRI scan today shows a right frontal lobe area of ischemia. Her neurologic symptoms have completely resolved. She is admitted for observation, further telemetry and echocardiogram. Neurology has recommended aspirin treatment as she has apparently not been taking the prescribed aspirin before this and to lower her blood pressure by 10% per day. Her lisinopril and metoprolol have been on hold as her systolic is in the 170s currently. Her current NIH score is 0. Discharge Providers Provider Date of admission: 07/08/23 11:15 Discharge Date: 07/11/23 Consults: 07/09/23 10:26 Consult to Physical Therapy Evaluate & Treat Comment: Physician Instructions: Evaluate and Treat 07/10/23 10:21 Consult to Occupational Therapy Evaluate & Treat Comment: Physician Instructions: Evaluate and treat Consult to Speech Therapy Evaluate & Treat Comment: Physician Instructions: Evaluate and treat 07/10/23 10:52 Consult to Physical Therapy Evaluate & Treat Comment: Physician Instructions: Evaluate and Treat Discharge provider: John Romero MD Summary Hospital Course Discharge Diagnosis: 1. Acute CVA 2. Hypertension 3. Anxiety, stress 4. Hyperlipidemia 5. Type 2 Diabetes 6. Gout Hospital Course: Ms. Erickson had an MRI that showed right frontal lobe ischemia, and CT angiogram that showed focal right MCA stenosis. She was not a TPA candidate due to timing. Neurology said no indication for IR for the stenosis. She was ultimately discharged on aspirin, plavix, statin. She was monitored on tele which showed no afib. There is some concern of this as a possibilty given her multiple areas of stroke on MRI. And so she should follow up as outpatient with a ziopatch to evaluate for possible afib. Her blood pressures were quite labile in the hospital. With lower blood pressures her neurologic symptoms seemed to worsen, so goal blood pressure target was on the higher side, and on day of discharged her blood pressure was 160-170s with neurologic findings including some left sided droop and left sided neglect, but much improved from her earlier significant speech, swallowing and left sided findings. She was seen by PT, OT, speech and ultimately recommended for discharge home with home health services. She should follow with her PCP within one week. Exam Vital Signs (past 8 hours): Oxygen Delivery Method Room Air Oxygen Flow Rate 0 Narrative Exam Narrative: GEN: no acute distress CV: regular rate and rhythm, no murmurs PULM: clear bilaterally, no wheezes ABD: soft, nontender, nondistended EXT: warm and well perfused with no edema NEURO: left sided facial droop, dysarthria, no weakness noted in upper or lower extremities Objective Labs 07/11/23 05:19 07/11/23 05:19 [facility] Medical History (Updated 07/08/23 @ 20:16 by Whitney Mendiola MD) Diabetes mellitus Hyperlipidemia Hypertension Gout Hypertension Surgical History (Updated 07/08/23 @ 20:17 by Whitney Mendiola MD) History of cataract surgery H/O hysterectomy with unilateral oophorectomy Social History household members: spouse Smoking Status: Never smoker alcohol intake: never Discharge Plan Discharge Plan Patient Disposition: Home Health Service Provider Discharge Comment: Ms. Erickson came in to the hospital with some neurologic symptoms and high blood pressure. She did have a stroke. Her blood pressure is quite difficult to control and she seems to feel better with high blood pressure, probably because her body has gotten used to it over time. She will need to slowly have her blood pressure medicines changed. She is started on a new blood pressure medication at a low dose called amlodipine. For her stroke she should take two blood thinners aspirin and plavix. To try to prevent more plaque from building up she should take atorvastatin. For her anxiety she is started on citalopram which will take a few weeks to work, but if she is having anxiety spells she can take a dose of diazepam. She should see a PCP as soon as possible. She should follow up with a ziopatch to see if she has any abnormal heart rhythm which can be ordered by her PCP. Discharge orders & Medications Prescriptions: New atorvastatin 20 mg Tablet 80 mg PO BEDTIME Qty: 120 0RF citalopram 10 mg Tablet 10 mg PO DAILY Qty: 30 0RF clopidogrel 75 mg Tablet 75 mg PO DAILY Qty: 30 0RF diazepam 5 mg Tablet 5 mg PO Q6HR PRN (Reason: Anxiety) Qty: 6 0RF lisinopril 20 mg Tablet 40 mg PO DAILY Qty: 30 0RF amlodipine 5 mg tablet 5 mg PO DAILY Qty: 30 0RF Continued allopurinol 100 mg tablet 100 mg PO DAILY metformin 500 mg tablet extended release 24 hr 500 mg PO BID metoprolol tartrate 25 mg tablet 25 mg PO BID aspirin 81 mg tablet,delayed release (DR/EC) 81 mg PO DAILY Qty: 30 0RF Discontinued simvastatin 40 mg tablet 40 mg PO ONCE PM lisinopril 40 mg tablet 40 mg PO BID Diet/Activity/Treatments Diet: Regular Visit Report/Discharge Packet Instructions: DI for Stroke-Ischemic, Clopidogrel, Lisinopril Stand Alone Forms: Patient Portal/API, Stroke Signs & Symptoms Quality VTE Deep Vein Thrombosis/Pulmonary Embolism Present on Admission: No
== END 2023-07-11 18:12 | disposition home or self-care (01) | DRG 66 ==
LOC: ED 07-08 07:17 → AC 07-08 12:43
PROVIDERS: Emergency Medicine; Internal Medicine; Student in an Organized Health Care Education/Training Program; Admitting Provider Family Medicine; Emergency Provider Emergency Medicine; Referring Provider Emergency Medicine; Visit Provider Family Medicine
DX: I63.511 Cerebral infarction due to unspecified occlusion or stenosis of right middle cerebral artery (principal); R29.810 Facial weakness; I10 Essential (primary) hypertension; E78.5 Hyperlipidemia, unspecified; E11.9 Type 2 diabetes mellitus without complications; M10.9 Gout, unspecified; I16.0 Hypertensive urgency; F41.9 Anxiety disorder, unspecified; R13.10 Dysphagia, unspecified; R29.700 NIHSS score 0; R29.706 NIHSS score 6; Z79.84 Long term (current) use of oral hypoglycemic drugs
CPT/HCPCS: 36415; 70450; 70496; 70498; 70551; 71045; 80048; 80053; 81001; 82550; 82962; 83605; 83690; 83735; 83880; 84484; 85025; 85027; 85610; 85730; 92523; 92610; 93005; 93010; 93306; 96374; 96375; 97129; 97161; 97164; 97166; 97535; 99285; 99291; J0131; J0360; J1815; J2060; J2543; Q9967

== ENCOUNTER → 2024-05-06 12:47 | Outpatient (CLI) | payer MEDICARE, OTHER, SELFPAY ==
[2023-07-08 12:00] VITALS: BMI 25.8
--- NOTE | 2024-05-06 12:51 | DI.CT.S_ITS ---
PROCEDURE: CT CERVICAL SPINE WO CON INDICATIONS: NECK PAIN TECHNIQUE: Noncontrast 3 mm thick sections acquired from the skull base to the T4 level. Sagittal and coronal reformats were then constructed. For radiation dose reduction, the following was used: automated exposure control, adjustment of mA and/or kV according to patient size. COMPARISON: None. FINDINGS: Image quality: Excellent. Bones: No fractures or dislocations. Visualized superior ribs are intact. Calcification of the OPLL on the left side of C2 and C3, causing [id number] spinal canal narrowing. Moderate disc height loss at C3-4, C4-5, C5-6. Mild disc height loss at remaining levels. Facet arthrosis at multiple levels, most prominent at the left side of C2-3 and bilateral is C3-4. Moderate to severe spinal canal narrowing at C5-6 due to degenerative change. Soft tissues: Prevertebral soft tissues are normal in thickness. No paravertebral hematomas. No apical pneumothoraces. IMPRESSION: No acute, displaced fracture or traumatic subluxation. Mild to moderate, multilevel degenerative disc disease and diffuse facet arthrosis. Of note, there is moderate spinal canal narrowing at C2-3 due to calcification of the OPLL, and moderate to severe spinal canal narrowing at C5-6 due to degenerative change. Dictated by: Azeem Fagan M.D. on 05/06/2024 at 16:00 Approved by: Azeem Fagan M.D. on 05/06/2024 at 16:02
== END ==
LOC: CT 12:51
PROVIDERS: PCP Internal Medicine; Referring Provider Internal Medicine; Visit Provider Internal Medicine
DX: M47.812 Spondylosis without myelopathy or radiculopathy, cervical region (principal); M50.30 Other cervical disc degeneration, unspecified cervical region; M48.02 Spinal stenosis, cervical region
CPT/HCPCS: 72125